=== PATIENT | female | born 1965 | race Caucasian/White ===

== ENCOUNTER 2018-07-01 08:35 | Observation (INO) | payer SELFPAY ==
--- NOTE | 2018-07-01 09:04 | ED ---
HPI Chest Pain - HPI Summary HPI Summary: This patient is a 52 year old F presenting to [facility] accompanied by her with a chief complaint of constant CP that began this morning. The patient rates the pain 1/10 in severity and states it is located mid sternal. Patient reports nausea, light headedness, SOB, fatigue, bilateral LE edema, and recent weight gain of 10lbs in the last 2 months. Patient denies blurred vison, vomiting, and recent head injury. She states she got up this am and checked her BP and noticed it was elevated. Pt recently broke her shoulder and saw Dr. Borjas, he noticed her BP was high and suggested she check it daily. She also had CP a week ago that radiated into her back but it resolved quickly. 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 Hx aortic stenosis, DM, and heart murmur. Pt smokes cigarettes daily. She is not on blood pressure medications, when she tried them in the past she had hematuria and LOC. FMHx of HTN. - History of Current Complaint Chief Complaint: EDChestPainROMI Time Seen by Provider: 07/01/18 08:53 Hx Obtained From: Patient Onset/Duration: Started Hours Ago, Still Present Timing: Constant Initial Severity: Mild Current Severity: Mild Pain Intensity: 1 Pain Scale Used: 0-10 Numeric Chest Pain Location: Mid Sternal Chest Pain Radiates: No Associated Signs and Symptoms: Positive: Other: - nausea, light headedness, SOB , fatigue, bilateral LE edema, and recent weight gain of 10lbs in the last 2 months. Negative: Negative - blurred vison, vomiting, - Allergy/Home Medications Allergies/Adverse Reactions: Allergies Allergy/AdvReac Type Severity Reaction Status Date / Time No Known Allergies Allergy Verified 07/01/18 08:41 Home Medications: Home Medications metFORMIN* [Glucophage 1000 MG TAB *] 1,000 mg PO BID 07/01/18 [History Confirmed 07/01/18] PMH/Surg Hx/FS Hx/Imm Hx Endocrine/Hematology History: Reports: Hx Diabetes Cardiovascular History: Reports: Hx Hypertension GI History: Denies: Hx Obstructive Bowel History: Denies: Hx Benign Prostatic Hyperplasia Sensory History: Denies: Hx Deafness Opthamlomology History: Denies: Hx Legally Blind EENT History: Denies: Hx Deafness Neurological History: Denies: Hx CVA Infectious Disease History: No Infectious Disease History: Denies: Traveled Outside the [place] in Last 30 Days - Family History Known Family History: Positive: Hypertension - Social History Occupation: Employed Full-time Lives: With Family Alcohol Use: None Substance Use Type: Reports: None Smoking Status (MU): Light Every Day Tobacco Smoker Review of Systems Positive: Fatigue. Negative: Fever, Chills Negative: Erythema Negative: Sore Throat Positive: Chest Pain, Other - high BP Positive: Shortness Of Breath. Negative: Cough Positive: Nausea. Negative: Abdominal Pain, Vomiting Negative: dysuria, hematuria Positive: Edema, Other - recent weight gain . Negative: Myalgia Negative: Rash Neurological: Negative - dizziness , Other - light headedness All Other Systems Reviewed And Are Negative: Yes Physical Exam - Summary Physical Exam Summary: Constitutional: Well-developed, Well-nourished, Alert. (-) Distressed Skin: Warm, Dry HENT: Normocephalic; Atraumatic Eyes: Conjunctiva normal Neck: Musculoskeletal ROM normal neck. (-) JVD, (-) Stridor, (-) Tracheal deviation Cardio: Rhythm regular, rate normal, Heart sounds normal; Intact distal pulses; The pedal pulses are 2+ and symmetric. Radial pulses are 2+ and symmetric. (-) Murmur Pulmonary/Chest wall: Effort normal. (-) Respiratory distress, (-) Wheezes, (-) Rales Abd: Soft, (-) epigastric tenderness, (-) Distension, (-) Guarding, (-) Rebound Musculoskeletal: (-) Edema Lymph: (-) Cervical adenopathy Neuro: Alert, Oriented x3 Psych: Mood and affect Normal Triage Information Reviewed: Yes Vital Signs On Initial Exam: Initial Vitals Temp Pulse Resp BP Pulse Ox 97.9 F 57 16 211/104 100 07/01/18 08:37 07/01/18 08:37 07/01/18 08:37 07/01/18 08:37 07/01/18 08:37 Vital Signs Reviewed: Yes Diagnostics - Vital Signs Vital Signs Temp Pulse Resp BP Pulse Ox 07/01/18 08:58 98 07/01/18 08:37 97.9 F 57 16 211/104 100 - Laboratory Result Diagrams: 07/01/18 09:14 07/01/18 09:14 Lab Statement: Any lab studies that have been ordered have been reviewed, and results considered in the medical decision making process. - Radiology CXR Radiology Interpretation Completed By: Radiologist - NO ACTIVE CARDIOPULMONARY DISEASE. ED physician has reviewed this radiology report. - EKG 0848 Cardiac Rate: Bradycardia EKG Rhythm: Sinus Bradycardia - at 55 BPM EKG Interpretation: no STEMI Re-Evaluation - Re-Evaluation First Eval Re-Evaluation Time: 10:05 Change: Improved Comment: Pt reports that her CP has resolved with the nitro. Chest Pain Course/Dx - Course Assessment/Plan: This patient is a 52 year old F presenting to [facility] accompanied by her with a chief complaint of constant CP that began this morning. The patient rates the pain 1/10 in severity and states it is located mid sternal. Patient reports nausea, light headedness, SOB, fatigue, bilateral LE edema, and recent weight gain of 10lbs in the last 2 months. Patient denies blurred vison, vomiting, and recent head injury. She states she got up this am and checked her BP and noticed it was elevated. Pt recently broke her shoulder and saw Dr. Borjas, he noticed her BP was high and suggested she check it daily. She also had CP a week ago that radiated into her back but it resolved quickly. 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 Hx aortic stenosis, DM, and heart murmur. Pt smokes cigarettes daily. She is not on blood pressure medications, when she tried them in the past she had hematuria and LOC. FMHx of HTN. An EKG reveals sinus bradycardia, no STEMI. CXR reveals, per radiologist, NO ACTIVE CARDIOPULMONARY DISEASE. Dx CP unspecified, hypertensive emergency. The patients chest pain is likely secondary to uncontrolled HTN. Blood work obtained. Her troponin and EKG were both negative. In the ED course the patient was given 324 ASA and nitro, which resolved the chest pain. We discussed patient care with Dr. Pitts and they accepted the patient for admission/observation. Patient will be admitted. The patient is agreeable with this plan. - Diagnoses Provider Diagnoses: Chest pain, unspecified, Hypertensive emergency - Provider Notifications Discussed Care Of Patient With: Navin Pitts Time Discussed With Above Provider: 10:00 Instructed by Provider To: Admit As Observation - Critical Care Time Critical Care Time: 30-74 min - 35 minutes Discharge - Sign-Out/Discharge Documenting (check all that apply): Patient Departure - admitted - Discharge Plan Condition: Fair Disposition: ADMITTED TO [facility] Referrals: Addi Barrios MD [Primary Care Provider] - - Attestation Statements Document Initiated by Scribe: Yes Documenting Scribe: Marty Camargo Provider For Whom Scribe is Documenting (Include Credential): Alejo Esquivel MD Scribe Attestation: IMarty , scribed for Alejo Esquivel MD on 07/01/18 at 1039.
[2018-07-01] MEDS ORDERED: Nitroglycerin TAB 0.4 MG* 0.4 MG TAB SL ONE (09:09)
[2018-07-01] MEDS ORDERED: nitroGLYCERIN DRIP* 25,000 MCG/250 ML BTL IV ONE (09:09)
[2018-07-01] MEDS ORDERED: Aspirin 81 mg CHEW TAB* 81 MG TAB.CHEW PO ONE (09:12)
[2018-07-01 09:22] LABS: ABS Basophils 0.1 10^3/ul (0-0.2); ABS Eosinophils 0.2 10^3/ul (0-0.6); ABS Lymphocytes 1.6 10^3/ul (1.0-4.8); ABS Monocytes 0.6 10^3/ul (0-0.8); ABS Nucleated RBC 0 10^3/ul; Eosinophil % 2.2 % (0-6); Hematocrit 42 % (35-47); Hemoglobin 14.3 g/dl (12.0-16.0); Lymphocyte % 18.9 % (25-47); Mean Corpuscular HGB Conc 34 g/dl (31-36); Mean Corpuscular Hemoglobin 30 pg (27-31); Mean Corpuscular Volume 88 fL (80-97); Mean Platelet Volume 7.7 um3 (7.4-10.4); Nucleated Red Blood Cells % 0.2; Platelet Count 215 10^3/ul (150-450); Red Blood Count 4.73 10^6/ul (4.00-5.40); Red Cell Distribution Width 13 % (10.5-15); White Blood Count 8.5 10^3/ul (3.5-10.8)
[2018-07-01 09:40] LABS: EGFR Non-African American 129.6 (>60)
--- NOTE | 2018-07-01 10:04 | RAD ---
HISTORY: cp COMPARISONS: October 04, 2005 VIEWS: 1: frontal portable view of the chest at 9:40 AM FINDINGS: LINES AND TUBES: None. CARDIOMEDIASTINAL SILHOUETTE: The cardiomediastinal silhouette is normal for portable technique. PLEURA: The costophrenic angles are sharp. No pleural abnormalities are noted. LUNG PARENCHYMA: The lungs are clear. ABDOMEN: The upper abdomen is clear. There is no subphrenic gas. BONES AND SOFT TISSUES: No bone or soft tissue abnormalities are noted. IMPRESSION: NO ACTIVE CARDIOPULMONARY DISEASE.
[2018-07-01] MEDS ORDERED: Lisinopril TAB* 10 MG PO ONE (13:20)
[2018-07-01] MEDS ORDERED: amLODIPine TAB* 5 MG PO ONE (13:20)
[2018-07-01] MEDS ORDERED: Dextrose 50% Syringe 50 ML* 25 GM/50 ML SYRINGE IV PUSH PRN (15:56)
[2018-07-01] MEDS: Insulin LISPRO* 1 UNITS UNIT SUBCUT SCH ×2 (17:53→20:14)
[2018-07-01] MEDS: hydrALAZINE IV* 20 MG/ML VIAL IV SLOW PU PRN (18:49)
[2018-07-01] MEDS ORDERED: Acetaminophen TAB* 325 MG ONE (18:54)
[2018-07-01] MEDS: Acetaminophen TAB* 325 MG PO PRN (18:55)
[2018-07-01] MEDS ORDERED: cloNIDine TAB* 0.1 MG PO ONE (19:42)
[2018-07-01] MEDS ORDERED: cloNIDine TAB* 0.1 MG ONE (19:51)
--- NOTE | 2018-07-01 20:03 | HP ---
CC: Dr. Barrios * ADMISSION HISTORY AND PHYSICAL: DATE OF ADMISSION: 07/01/18 PATIENT OF ADMITTING HOSPITALIST: Dr. Navin Pitts.* (DICTATED BY MORGAN HERRON) PRIMARY CARE PHYSICIAN: Dr. Barrios. CHIEF COMPLAINT: Chest pain. HISTORY OF PRESENT ILLNESS: Mrs. Coley is a 52-year-old female with past medical history significant for untreated hypertension and type 2 diabetes mellitus, who presented to the emergency room today with complaints of persistent chest pain and hypertension since yesterday. The patient apparently was treated for her hypertension about a year ago and took some medications that she could not tell me that names of them, however after a few weeks she decided to discontinue taking them because she had some reactions. When asking her about this reaction, she said that her blood pressure medicine made her dizzy and got lightheaded and presyncopal at times; however, she did not follow up with her primary care physician to seek an alternative medication. She checks her blood pressure at home and she notes that it has been constantly high , but appears to be a lot higher since yesterday. She had experienced some chest tightness, described it as dull aching pain, constant and 1 to 2/10 with some radiation to her back. She called her primary care physician and the patient was advised to come to the emergency room since her last reading of blood pressure at home was over 200 for systolic and over 120 for diastolic. The patient denied any substernal chest pain, shortness of breath, headache, dizziness, blurred vision, or visual changes. She does have remote history of aortic stenosis, for which she has never followed up with any etcher photoengraving. She was evaluated in the emergency room and her EKG found to be in sinus rhythm. She had also laboratory workup that revealed no significant abnormality. She was started on nitroglycerin drip in the emergency room with some improvement of her blood pressure. She also denied any chest pain upon admission once her blood pressure became closer to normal level. Given her ongoing symptoms and the fact that she has been hypertensive for a prolonged period of time and the need to control her hypertensive emergency, we were asked to see the patient to consider admission for observation. PAST MEDICAL HISTORY: As mentioned above, significant for: 1. Untreated hypertension. 2. Type 2 diabetes mellitus. 3. Morbid obesity. 4. Chronic neck pain. PAST SURGICAL HISTORY: Significant for C-sections x4 as well as throat surgery in the past. CURRENT MEDICATIONS: Include metformin 1000 mg p.o. b.i.d. ALLERGIES: She is allergic to BEE VENOM. FAMILY HISTORY: Reviewed and noncontributory. SOCIAL HISTORY: The patient is a current smoker, smokes about 1 pack per day. She denies drinking alcohol. 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 Her is a healthcare proxy carrier and she wishes to be a full code. REVIEW OF SYSTEMS: See HPI. Otherwise, 12 points review of systems were examined and they were essentially negative. PHYSICAL EXAMINATION GENERAL: She is a pleasant, obese, middle-aged female, in no acute distress or discomfort at the time of admission. VITAL SIGNS: Her vitals were stable and the patient was afebrile. Most recent blood pressure reading was 150/90. HEENT: Head is normocephalic, atraumatic. Sclerae anicteric. PERRLA. EOMs intact. Oropharynx is pink and moist. NECK: Supple. Trachea midline. No cervical adenopathy, thyromegaly, or JVD. LUNGS: Clear to auscultation bilaterally. HEART: Normal sinus rhythm noted. There is a harsh systolic murmur noted at the sternal margin. No gallops or rubs. ABDOMEN: Soft, nontender, and nondistended. No hernias, masses, or hepatosplenomegaly. BREASTS: Exam deferred at this time. BACK: With normal curvature and no CVA tenderness. EXTREMITIES: Without cyanosis, clubbing, or edema. NEUROLOGIC: She is awake, alert, and oriented x4. Tongue is midline and handgrip is equal bilaterally. Sensation is intact throughout. RECTAL: Exam deferred at this time. LABORATORY WORKUP: Her labs were reviewed and results are not available at this time since the [employer] system is down. Please review labs in her chart. ACCESSORY DIAGNOSTIC DATA: Her EKG was done today revealed sinus bradycardia with no evidence of ST changes. IMPRESSION: A 52-year-old female with past medical history significant for untreated hypertension, type 2 diabetes mellitus, and morbid obesity, who presented to the emergency room today with 24-hour history of elevated blood pressure and chest tightness, found to be in hypertensive emergency and will be admitted under hospital services for the following. ASSESSMENT AND PLAN: 1. Hypertensive emergency. The patient will be admitted for close observation to the intensive care unit. She was started on nitroglycerin drip per protocol in the emergency room and we will continue her nitroglycerin drip in the ICU and to titrate her off to maintain systolic blood pressure of 150. I have discussed the case with my attending, Dr. Pitts, who is recommending being cautious about dropping her blood pressure too fast in fear of having stroke. We will maintain her systolic blood pressure at 70% of the initial higher systolic at presentation and to titrate her nitroglycerin to half and 1 hour prior to discontinuing her nitrate drip, we will initiate calcium channel latricia as well as lisinopril at higher dose to maintain her blood pressure. The patient is clinically stable at this point and hopefully, we can convert her to oral antihypertensive agent by tomorrow, so she can be discharged to home. 2. Diabetes mellitus. We will hold off her metformin and will be covered with glucose checks and sliding scale using lispro. 3. Morbid obesity. Supportive care. 4. DVT prophylaxis: She is a moderate risk based on calculation and we will cover with SCDs for the time being. 5. Code status: She wishes to be a full code. TIME SPENT: Approximately 60 minutes were spent admitting this patient, of which greater than 50% of that time on taking history and performing physical exam. I went on and discussed the case with my attending, who agreed to plan of care. MORGAN HERRON [id number]/[facility] #: [id number] ELLA
[2018-07-02 05:39] LABS: ABS Basophils 0.1 10^3/ul (0-0.2); ABS Eosinophils 0.2 10^3/ul (0-0.6); ABS Lymphocytes 1.7 10^3/ul (1.0-4.8); ABS Monocytes 0.6 10^3/ul (0-0.8); ABS Neutrophils 5.3 10^3/ul (1.5-7.7); ABS Nucleated RBC 0 10^3/ul; Eosinophil % 2.1 % (0-6); Hematocrit 39 % (35-47); Hemoglobin 13.3 g/dl (12.0-16.0); Lymphocyte % 21.7 % (25-47); Mean Corpuscular HGB Conc 35 g/dl (31-36); Mean Corpuscular Hemoglobin 30 pg (27-31); Mean Corpuscular Volume 87 fL (80-97); Mean Platelet Volume 7.6 um3 (7.4-10.4); Nucleated Red Blood Cells % 0; Platelet Count 192 10^3/ul (150-450); Red Blood Count 4.42 10^6/ul (4.00-5.40); Red Cell Distribution Width 13 % (10.5-15); White Blood Count 7.9 10^3/ul (3.5-10.8)
[2018-07-02 05:59] LABS: EGFR Non-African American 132.6 (>60)
[2018-07-02] MEDS: hydrALAZINE IV* 20 MG/ML VIAL IV SLOW PU PRN ×2 (07:11→14:40)
[2018-07-02] MEDS: Acetaminophen TAB* 325 MG PO PRN (09:07)
[2018-07-02] MEDS ORDERED: Lisinopril TAB* 10 MG PO ONE (11:05)
[2018-07-02] MEDS: Insulin LISPRO* 1 UNITS UNIT SUBCUT SCH ×3 (11:15→17:47)
[2018-07-02] MEDS ORDERED: LORazepam INJ* 2 MG/ML 1 ML VIAL IV PUSH ONE (12:22)
[2018-07-02] MEDS ORDERED: LORazepam INJ* 2 MG/ML 1 ML VIAL ONE (12:25)
[2018-07-02] MEDS: hydrALAZINE IV* 20 MG/ML VIAL IV SLOW PU STA ×2 (12:28→13:56)
[2018-07-02] MEDS ORDERED: Regadenoson* 0.4 MG/5 ML SYRINGE ONE (14:33)
[2018-07-02] MEDS ORDERED: Metoprolol Tartrate IV* 1 MG/ML 5 ML VIAL IV ONE (15:43)
--- NOTE | 2018-07-02 15:47 | RAD ---
Indication: Chest pain. Myocardial perfusion scan was performed utilizing 1 day protocol. Rest myocardial perfusion was performed after intravenous injection of 10.4 mCi. Pharmacological stress was applied and 26.2 mCi of technetium 90 9M tetrofosmin was injected for the stress portion of the study. The left ventricle appears to be mildly enlarged. There is a moderate sized photopenic defect in the anterior wall on the stress images as well as the inferior wall. Both areas appear to reperfuse on the rest images and this is consistent with moderate size reversible change involving the anterior wall and inferior wall. Ejection fraction at stress is 59%. Evaluation of wall motion demonstrates no definite focal wall motion abnormality. IMPRESSION: Moderate-sized reversible change in the anterior wall and inferior wall. Ejection fraction of 59% with no focal wall motion abnormality. ASSESSMENT: High risk Based on imaging criteria from ACC/AHA 2002 Guideline Update for the Management of Patients With Chronic Stable Angina Table 23. Noninvasive Risk Stratification. Reference. HIGH-RISK (GREATER THAN 3% ANNUAL MORTALITY RATE) - Severe resting left ventricular dysfunction (LVEF < 35%) - Severe exercise left ventricular dysfunction (exercise LVEF < 35%) - Stress-induced large perfusion defect (particularly if anterior) - Stress-induced multiple perfusion defects of moderate size - Large, fixed perfusion defect with LV dilation or increased lung uptake (thallium-201) - Stress-induced moderate perfusion defect with LV dilation or increased lung uptake (thallium-201) INTERMEDIATE-RISK (1%-3% ANNUAL MORTALITY RATE) - Mild/moderate resting left ventricular dysfunction (LVEF = 35% to 49%) - Stress-induced moderate perfusion defect without LV dilation or increased lung intake (thallium-201) LOW-RISK (LESS THAN 1% ANNUAL MORTALITY RATE) - Normal or small myocardial perfusion defect at rest or with stress
[2018-07-02] MEDS ORDERED: Metoprolol Tartrate TAB* 25 MG PO ONE (16:40)
[2018-07-02] MEDS ORDERED: amLODIPine TAB* 5 MG PO SCH (17:00)
[2018-07-02] MEDS ORDERED: Aspirin TAB* 325 MG PO ONE (17:04)
[2018-07-02 17:47] VITALS: BP 161/73
--- NOTE | 2018-07-02 23:40 | CONS ---
CC: Dr. Barrios; Dr. Yahir Rodriguez CARDIOLOGY CONSULTATION: DATE OF CONSULT: CONSULTING PHYSICIAN: Dr. Moon. REASON FOR CONSULT: Abnormal stress test, chest pain. HISTORY OF PRESENT ILLNESS: Mrs. Vianca Connors is a very pleasant 52-year-old woman who has multiple risk factors of coronary artery disease including obesity , tobacco use, hypertension, diabetes, aortic stenosis. She said she has been told of high blood pressures in the past. She said 6 weeks ago, she fell and broke her shoulder. She saw Dr. Borjas in followup earlier this week and he told her that her blood pressures were elevated in the 200/108 range. She was told to take her blood pressure twice a day for the rest of the week. She said that blood pressures have been running in the 200 to 220/108 range and she also has felt more fatigued and more short of breath. 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 She said yesterday, for the first time, she developed chest pain while going to work. She said that it started about 5:30 in the morning and continued to work and she decided to come to the emergency room. She was admitted and had 2 negative troponins and she was given nitroglycerin and had resolution of her pain and her blood pressure is 200 /120 at home. She has a cough, which she has had for a week. She said she has been more short of breath. She said sometimes she wakes up in the middle of the night short of breath and she has to sit up for a few moments. She denies any syncope or near syncope except in the past when she was on medicine, which she thinks may have been metoprolol. She denies fever, chills, or sweats. She has had a nonproductive cough. PAST MEDICAL HISTORY: Includes hypertension, diabetes, elevated cholesterol based on screening here, tobacco use since 1982. She denies asthma, emphysema. She has type 2 diabetes, morbid obesity, chronic neck pain. History of a murmur since childhood; told of mild aortic stenosuis at echo last year (report not available). PAST SURGICAL HISTORY: Includes C-sections and throat surgery in the past. MEDICATIONS: As an outpatient include metformin 1000 mg b.i.d. As an inpatient , she is on: 1. Acetaminophen. 2. Amlodipine 10 mg a day started day. 3. Hydralazine p.r.n. 4. She has got clonidine. 5. Lorazepam. 6. Metoprolol 25 mg once earlier today. 7. She was on also lisinopril 40 mg a day. ALLERGIES: She is allergic to BEE VENOM. She also said that a few years ago, she was put on medicine, which she thinks may have been on METOPROLOL and she felt lightheaded and her symptoms resolved immediately with stopping it. FAMILY HISTORY: Includes, a mother who has hypertension and father who has hypertension. They are 74 and 76. One brother is alive and well. 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 She is accompanied by whose name is Mr. Connors. REVIEW OF SYSTEMS: Review of systems x10 was negative, except as above. PHYSICAL EXAM: She is a well-developed, well-nourished, obese female, in no apparent distress. Heart rate is 64. Blood pressure was 178/88. No significant JVD. Carotids 2+ with transmitted murmurs or bruits bilaterally. Extraocular muscles intact. Sclerae anicteric. Cardiac Exam: S1, S2 with 3/6 systolic ejection murmur, harsh at the base radiating across the pericardium, seemed to have single S2. Chest was clear. No CVAT. Abdomen: Obese, bowel sounds present. Femoral pulses intact with bruits bilaterally. Distal pulses are intact. No edema. Motor strength 5/5 bilaterally. Deep tendon reflexes 2/ 4. Alert and oriented x3. DIAGNOSTIC STUDIES/LAB DATA: Laboratories include potassium of 3.7, BUN of 9, creatinine of 0.49, magnesium low at 1.7. Troponin 0.01 x2. Cholesterol 225, LDL 133, HDL low at 36, triglycerides are 277. She had a nuclear stress test performed today, which revealed EF of 59%, stress. There was a moderate defect to the anterior wall on stresses as well as on the inferior wall, both appeared to be perfused consistent with moderate sized reversible change including the anterior wall and inferior wall. She was felt to be at high risk. Her EKG, 07/01/18, revealed sinus rhythm with possible anterior septal infarct and minor ST depressions in I and aVL and V4 and V6 and one more ST elevations in III and aVF. The ST changes were new compared to 2004 and her EKG from today revealed sinus brachycardia at [address] depressions in I and aVL and V5 and V6, poor R-wave progression and minimal ST elevation in III and aVF. EKG from yesterday at 1940 again showed similar findings. IMPRESSION: My impression is that Ms. Coley has new onset of chest pain in the setting of risk factors and poorly controlled blood pressure, diabetes, hyperlipidemia, tobacco use, and she has a high risk abnormal stress nuclear. She is at high risk for progression of her ischemic heart disease and an infarct and myocardial infarction and . I discussed that frankly with her and her with Dr. Moon at the bedside. The patient understands that our recommendation is to keep her as an inpatient, optimize medical therapy, and arrange for cardiac catheterization early next week. However, she reports that she is adamant about leaving the hospital and returning as an outpatient for her further evaluation and treatment. The risks and benefits were reviewed at length and the patient continues to be adamant about leaving. For the time being, I have recommended the followin. I strongly advised her to stay and if she leaves that will be against medical advice. 2. I would suggest adding aspirin 81 mg a day to her regimen. 3. I would use moderate dose of amlodipine perhaps 5 mg a day as well as lisinopril at moderate doses to control blood pressure. 4. She did not tolerate nitroglycerin after several hours due to headache; however, I would discharge her with instructions to use nitroglycerin p.r.n. 5. She is to return if she has recurrent chest pain. 6. I have advised tobacco cessation. 7. Would discharge her on Lipitor 40 mg a day, try to stabilize her plaques. 8. Given her history of aortic stenosis, would recommend a repeat echo to evaluate for progression of her aortic stenosis and LV dysfunction. 9. She has multiple bruits versus transmitted murmurs. Would consider a renal artery study as well. 10. Her prognosis is guarded. 11. Consider further evaluation for vascular disease with carotid dopplers and susana's given multiple bruits. [id number]/[facility] #: [id number] [facility]
[2018-07-03] MEDS ORDERED: Aspirin EC TAB* 81 MG TAB.EC PO SCH (09:00)
--- NOTE | 2018-07-05 08:55 | PN ---
Hospitalist Progress Note Date of Service: 07/02/18 . HOSPITALIST DISCHARGE NOTE: See dc instructions and summary by me. Patient demanding to be discharged and come back next week for cardiac catheterization. dc instructions reviewed with the patient at the bedside. DC patient home today. Cardiology team to contact patient for catheterization plans next week.
--- NOTE | 2018-07-05 10:09 | DS ---
DISCHARGE SUMMARY: DATE OF ADMISSION: 07/01/18 DATE OF DISCHARGE: 07/02/18. PRIMARY CARE PROVIDER: Dr. Addi Barrios, Medicine. STATUS DURING HOSPITALIZATION: Observation. PRINCIPAL DISCHARGE DIAGNOSIS: Unstable angina/abnormal stress test/hypertensive urgency. SECONDARY DIAGNOSES: 1. Obesity. 2. Tobacco abuse. 3. Hypertension. 4. Uncontrolled diabetes. 5. History of murmur (aortic stenosis). 6. Hypercholesterolemia. 7. Chronic neck pain. DISCHARGE MEDICATION REGIMEN: 1. Aspirin 81 mg by mouth daily. 2. Lisinopril 40 mg by mouth daily. 3. Lipitor 40 mg by mouth daily. 4. Nitroglycerin 0.6 mg per tab one tab every 5 minutes p.r.n. chest pain up to 3 times. 5. Norvasc 5 mg by mouth daily. 6. Metformin 1000 mg by mouth twice daily. 7. Hydrochlorothiazide 25 mg by mouth daily. HISTORY OF PRESENT ILLNESS/HOSPITAL COURSE: Please see the H and P by Dr. Minesh Pitts as well as t he cardiology consultation by Dr. Yahir Rodriguez. 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 She was quite hypertensive with systolics over 200 and diastolics over 100. The patient was more fatigued. This started the morning prior to admission and continued to wo rk and then ultimately to the emergency room. She had negative troponins and her blood pressure was controlled with an IV nitroglycerin drip. She described an upper respiratory infection with dry coug h. She denied any fevers or other infectious symptomatology. She was admitted to the ICU and ruled out but proceeded with a stress test that was rated high risk by ACC/AHA criteria. The patient is as ymptomatic at this time, she is adamantly refusing to stay in the hospital any longer but will agree to come back for a cardiac catheterization next week. She was counseled by Dr. Rodriguez in person in m y presence and I directly implored her to stay in the hospital over the weekend but she insisted on l eaving. Medications were prescribed to her pharmacy. She promised compliance with these medications. The patient is going to be contacted by the cardiology service for a catheterization appointment ea rljesus next week. She is given careful instructions to come back to the emergency room if she has any w orrisome symptoms including but not limited to chest pain, shortness of breath, lightheaded or any ot her worrisome symptoms. The nuclear medicine Lexiscan done on 07/02/18 is available in the [employer] [facility] but concludes: Moderate sized reversible change in the anterior wall and inferior wall with ejection fraction noted at 59% with no focal wall abnormality and the assessment is high risk by ACC/AHA 2002 guideline updat e for the management of patients with chronic stable angina. TIME SPENT: Total time taken to discharge Ms. Vianca Connors was 55 minutes; greater than half the time w as spent at the bedside going over her history and physical examination and explaining the return to hospital instructions referenced above. CONDITION AT DISCHARGE: Stable but at risk with careful ED instructions given to patient. Tobacco cessation counseling was also given directly to the patient by me at the point of discharge. [id number]/[facility] #: [id number]
== END 2018-07-02 18:15 | disposition home or self-care (01) ==
LOC: ED 08:35 → ICU 16:07 → INTOOBSV 16:07
PROVIDERS: ADMIT Student in an Organized Health Care Education/Training Program; ATTEND Internal Medicine
DX: R07.9 Chest pain, unspecified (principal); I10 Essential (primary) hypertension; E11.9 Type 2 diabetes mellitus without complications; E66.01 Morbid (severe) obesity due to excess calories; M54.2 Cervicalgia; G89.29 Other chronic pain; F17.210 Nicotine dependence, cigarettes, uncomplicated; R94.31 Abnormal electrocardiogram [ECG] [EKG]; R00.1 Bradycardia, unspecified
CPT/HCPCS: 36415; 71045; 78452; 80048; 80053; 80061; 83036; 83605; 83735; 84484; 85025; 87641; 93005; 93017; 96374; 96375; 96376; 99285; A9270-GY; A9502; G0378; J0360; J2060; J2785; J3490

== ENCOUNTER 2018-07-03 22:53 | Observation (INO) | payer BC ==
[2018-07-03] MEDS ORDERED: Nitroglycerin 2% OINT* 1 GM PAK TOPICAL ONE (23:18)
[2018-07-03] MEDS ORDERED: Nitroglycerin 2% OINT* 1 GM PAK ONE (23:19)
--- NOTE | 2018-07-03 23:29 | ED ---
HPI Chest Pain - HPI Summary HPI Summary: This is scribe Phu Fortune documenting for attending Dr. Jerry Jean-Baptiste MD. This patient is a 52 year old F presenting to [facility] accompanied by a male with a chief complaint of intermittent, pressure-like, midsternal CP since several hours ago. The patient rates the pain 4/10 in severity. Patient reports general malaise, SOB, cough, HTN, fatigue, and increased sleeping. Pt took NTG at 21:00 , which she took at home. She felt better and then the pain came back, so she decided to come to the ED. Pt was in ICU two days ago for HTN and heart murmur. She says that she failed a stress test. She left AMA yesterday without getting the heart cath. Pt felt a lot better yesterday than she felt today. SHx pt says she quit smoking two days ago, since the first incident. PMHx heart murmur. I, Dr. Jean-Baptiste, personally performed the services described in this documentation as scribed in my presence and it is both accurate and complete. - History of Current Complaint Chief Complaint: EDChestPainROMI Time Seen by Provider: 07/03/18 23:12 Hx Obtained From: Patient Onset/Duration: Started Hours Ago Timing: Intermittent Initial Severity: Moderate Current Severity: Moderate Pain Intensity: 4 Pain Scale Used: 0-10 Numeric Chest Pain Location: Mid Sternal Associated Signs and Symptoms: Positive: Weakness, Shortness of Breath, Cough - Additional Pertinent History Primary Care Physician: [id number] - Allergy/Home Medications Allergies/Adverse Reactions: Allergies Allergy/AdvReac Type Severity Reaction Status Date / Time No Known Allergies Allergy Verified 07/01/18 08:41 PMH/Surg Hx/FS Hx/Imm Hx Endocrine/Hematology History: Reports: Hx Diabetes Cardiovascular History: Reports: Hx Angina, Hx Hypertension, Other Cardiovascular Problems/Disorders - AORTIC STENOSIS Denies: Hx Coronary Artery Disease, Hx Hypercholesterolemia, Hx Myocardial Infarction Comment Only: Hx Valvular Heart Disease - unsure Respiratory History: Denies: Hx Asthma, Hx Chronic Obstructive Pulmonary Disease (COPD) GI History: Denies: Hx Obstructive Bowel History: Denies: Hx Benign Prostatic Hyperplasia Sensory History: Denies: Hx Contacts or Glasses, Hx Legally Blind, Hx Deafness, Hx Hearing Aid Opthamlomology History: Denies: Hx Contacts or Glasses, Hx Legally Blind Neurological History: Denies: Hx CVA - Immunization History Date of Tetanus Vaccine: unk Date of Influenza Vaccine: unk Infectious Disease History: No Infectious Disease History: Denies: Traveled Outside the [place] in Last 30 Days - Family History Known Family History: Positive: Hypertension - Social History Alcohol Use: None Substance Use Type: Reports: None Smoking Status (MU): Heavy Every Day Tobacco Smoker Type: Cigarettes Amount Used/How Often: 1 pck/day Length of Time of Smoking/Using Tobacco: 1982 Have You Smoked in the Last Year: Yes Review of Systems Positive: Fatigue, Other - increased need for sleep Positive: Chest Pain, Other - murmur Positive: Shortness Of Breath, Cough Positive: Weakness All Other Systems Reviewed And Are Negative: Yes Physical Exam - Summary Physical Exam Summary: Appearance: Well-appearing, Well-nourished, lying in bed comfortably Skin: Warm, dry, no obvious rash Eyes: sclera anicteric, no conjunctival pallor ENT: mucous membranes moist, pharynx appears normal Neck: Supple, nontender Respiratory: Clear to auscultation, no signs of respiratory distress Cardiovascular: 3/6 pansystolic murmur Abdomen: Soft, nontender, normal active bowel sounds present Musculoskeletal: Normal, Strength/ROM Intact Neurological: A&Ox3, awake and alert, mentation is normal, speech is fluent and appropriate Psychiatric: affect is normal, does not appear anxious or depressed Triage Information Reviewed: Yes Vital Signs On Initial Exam: Initial Vitals Temp Pulse Resp BP Pulse Ox 99.0 F 73 15 187/70 94 07/03/18 23:08 07/03/18 23:08 07/03/18 23:08 07/03/18 23:08 07/03/18 23:08 Vital Signs Reviewed: Yes Diagnostics - Vital Signs Vital Signs Temp Pulse Resp BP Pulse Ox 07/03/18 23:08 99.0 F 73 15 187/70 94 - Laboratory Result Diagrams: 07/04/18 05:30 07/04/18 05:30 Lab Statement: Any lab studies that have been ordered have been reviewed, and results considered in the medical decision making process. - Radiology CXR Radiology Interpretation Completed By: ED Physician - possible new infiltrate in left upper lung field - EKG 22:59 Cardiac Rate: NL EKG Rhythm: Sinus Rhythm EKG Interpretation: No ischemic changes Re-Evaluation - Re-Evaluation First Eval Re-Evaluation Time: 23:58 Change: Improved - pain is almost resolved Chest Pain Course/Dx - Diagnoses Provider Diagnoses: Pneumonia, Unstable angina Discharge - Sign-Out/Discharge Documenting (check all that apply): Patient Departure - admit - Discharge Plan Condition: Guarded Disposition: ADMITTED TO [facility] - Billing Disposition and Condition Condition: GUARDED Disposition: Admitted to [facility] - Attestation Statements Document Initiated by Scribe: Yes Documenting Scribe: Phu Fortune Provider For Whom Kim is Documenting (Include Credential): Jerry Jean-Baptiste MD Scribe Attestation: Phu Peck, scribed for Jerry Jean-Baptiste MD on 07/04/18 at 0647. Scribe Documentation Reviewed: Yes Provider Attestation: The documentation as recorded by the scribePhu accurately reflects the service I personally performed and the decisions made by me, Jerry Jean-Baptiste MD
[2018-07-03 23:30] LABS: ABS Basophils 0.1 10^3/ul (0-0.2); ABS Eosinophils 0.1 10^3/ul (0-0.6); ABS Lymphocytes 0.9 10^3/ul (1.0-4.8); ABS Monocytes 1.1 10^3/ul (0-0.8); ABS Neutrophils 7.1 10^3/ul (1.5-7.7); ABS Nucleated RBC 0 10^3/ul; Eosinophil % 0.7 % (0-6); Hematocrit 41 % (35-47); Hemoglobin 14.3 g/dl (12.0-16.0); Lymphocyte % 9.6 % (25-47); Mean Corpuscular HGB Conc 35 g/dl (31-36); Mean Corpuscular Hemoglobin 31 pg (27-31); Mean Corpuscular Volume 88 fL (80-97); Mean Platelet Volume 7.6 um3 (7.4-10.4); Nucleated Red Blood Cells % 0.1; Platelet Count 190 10^3/ul (150-450); Red Blood Count 4.66 10^6/ul (4.00-5.40); Red Cell Distribution Width 13 % (10.5-15); White Blood Count 9.2 10^3/ul (3.5-10.8)
[2018-07-03 23:46] LABS: EGFR Non-African American 101.1 (>60)
[2018-07-04] MEDS ORDERED: cefTRIAXone(*) 1 GM in NS 0.9% 50 ML* 50 ML IVPB ONE (00:05)
[2018-07-04] MEDS ORDERED: Azithromycin IV(*) 500 MG in NS 0.9% 250 ML* 250 ML IVPB ONE (00:05)
[2018-07-04] MEDS ORDERED: Ondansetron ODT TAB* 4 MG PO PRN (00:44)
[2018-07-04] MEDS ORDERED: Melatonin 3 MG TAB PO PRN (00:44)
[2018-07-04] MEDS ORDERED: Aspirin 81 mg CHEW TAB* 81 MG TAB.CHEW PO ONE (00:44)
[2018-07-04] MEDS ORDERED: Nicotine Inhaler* 10 MG AMP INH PRN (00:44)
[2018-07-04] MEDS ORDERED: NS 0.9% 1000 ML* 1,000 ML IV SCH (00:45)
[2018-07-04] MEDS ORDERED: Mouth Piece, Nicotine* 1 EACH CARTRIDGE INH ONE (00:55)
--- NOTE | 2018-07-04 00:57 | HP ---
H&P (Free Text) History and Physical: PCP: Bryan Barrios MD Date/Time: 07/04/2018 0010 CC: chest pain HPI: Mrs Vianca Connors is a 52YO obese female smoker HX HTN & DM2 who was admitted observation to [facility] 07/01-07/02/2018 for chest pain and found on a high risk nuclear stress to have a moderate-sized reversible change in the anterior and inferior frazier. EF 59% with no focal wall motion abnormality. She was offered a cardiac cath for further evaluation and management; however, she refused and signed out AMA. Tonight she returns reporting onset around 1400 of non- exertional non-radiating substernal chest pressure associated with SOB, nausea without vomiting, sweating, and palpitations which improved after SL nitro and resolved with the addition of nitropaste in the ED. After several hours of continuing discomfort, she had her drive her back to [facility] ED where a new RUL infiltrate was identified along with a benign ECG and normal troponin. PMedHx, PSurgHx, SocHx, & FamHx: reviewed & unchanged from prior H&P dated 07/01, copied below Ambulatory Orders Nursing to reconcile. metFORMIN* [Glucophage 1000 MG TAB *] 1,000 mg PO BID 07/01/18 Aspirin [Adult Low Dose Aspirin EC] 81 mg PO DAILY #30 tablet. 07/02/18 Hydrochlorothiazide TAB* [Hydrodiuril TAB*] 25 mg PO DAILY #30 tab 07/02/18 Lisinopril [Zestril 40 MG-] 40 mg PO DAILY #30 tab 07/02/18 Nitroglycerin TAB 0.6 MG* 0.6 mg SL Q5M PRN #30 tab 07/02/18 amLODIPine TAB* [Norvasc 5 mg TAB*] 5 mg PO DAILY #30 tab 07/02/18 Allergies No Known Allergies Allergy (Verified 07/01/18 08:41) ROS: as above, otherwise reviewed and all were negative vitals: Vital Signs Temp 37.2 C 07/03/18 23:08 Pulse 71 07/03/18 23:42 Resp 15 07/03/18 23:42 BP 157/71 07/03/18 23:40 Pulse Ox 98 07/03/18 23:42 Intake & Output 07/03/18 07/03/18 07/04/18 11:59 23:59 11:59 Weight 86.183 kg Constitutional: NAD, normally developed, obese white female smelling prominently of cigarette smoke HEENM: atraumatic; sclera/conjunctiva: anicteric/clear; hearing: clinically intact; oropharynx: clear, mucosa moist Neck: soft tissue: non-tender; thyroid: normal Pulmonary: clear but mildly diminished RUL, fair aeration, no accessory muscle use CV: RR/RR, normal S1S2, no carotid bruit, no jugular venous distention, 2+ B DP/ PT, no edema Abdominal: soft, non-distended, non-tender, no rebound/guarding/rigidity, normoactive bowel sounds, no hepatosplenomegaly or masses, no costovertebral angle tenderness Musculoskeletal: general: grossly intact, non-tender Integumental: normal appearance and texture of exposed skin Psychiatric orientation: AA&O to PPS affect: calm mood: cooperative eye contact: poor content: reliable responses: timely insight: fair to poor Testing: Lab Results 07/03/18 07/03/18 Range/Units 23:18 23:18 WBC 9.2 (3.5-10.8) 10^3/ul RBC 4.66 (4.00-5.40) 10^6/ul Hgb 14.3 (12.0-16.0) g/dl Hct 41 (35-47) % MCV 88 (80-97) fL MCH 31 (27-31) pg MCHC 35 (31-36) g/dl RDW 13 (10.5-15) % Plt Count 190 (150-450) 10^3/ul MPV 7.6 (7.4-10.4) um3 Neut % (Auto) 77.1 (38-83) % Lymph % (Auto) 9.6 L (25-47) % Edmonson % (Auto) 11.5 H (0-7) % Eos % (Auto) 0.7 (0-6) % Baso % (Auto) 1.1 (0-2) % Absolute Neuts (auto) 7.1 (1.5-7.7) 10^3/ul Absolute Lymphs (auto) 0.9 L (1.0-4.8) 10^3/ul Absolute Monos (auto) 1.1 H (0-0.8) 10^3/ul Absolute Eos (auto) 0.1 (0-0.6) 10^3/ul Absolute Basos (auto) 0.1 (0-0.2) 10^3/ul Absolute Nucleated RBC 0 10^3/ul Nucleated RBC % 0.1 Sodium 133 L (135-145) mmol/L Potassium Pending Chloride 101 (101-111) mmol/L Carbon Dioxide 22 (22-32) mmol/L Anion Gap Pending BUN 12 (6-24) mg/dL Creatinine 0.62 (0.51-0.95) mg/dL Est GFR ( Amer) 122.3 (>60) Est GFR (Non-Af Amer) 101.1 (>60) BUN/Creatinine Ratio 19.4 (8-20) Glucose 219 H (70-100) mg/dL Calcium 9.3 (8.6-10.3) mg/dL Total Bilirubin 0.60 (0.2-1.0) mg/dL AST Pending ALT 21 (7-52) U/L Alkaline Phosphatase 68 (34-104) U/L Troponin I 0.01 (<0.04) ng/mL Total Protein 7.4 (6.4-8.9) g/dL Albumin 3.9 (3.2-5.2) g/dL Globulin 3.5 (2-4) g/dL Albumin/Globulin Ratio 1.1 (1-3) ECG, personally reviewed: NSR rate 68, no ischemia CXR, personally reviewed: interval development of a RUL infiltrate NST (07/02/2018): IMPRESSION: Moderate-sized reversible change in the anterior wall and inferior wall. Ejection fraction of 59% with no focal wall motion abnormality. ASSESSMENT: High risk Impression: 52F HX obesity, HTN, DM2 returns with chest pain after refusing cardiac cath and signing out AMA 07/02 with a high-risk NST DIAGNOSIS & PLAN Primary chest pain r/o ACS : give 324mg aspirin now & 81mg QAM : give 25mg PO metoprolol IR now : 1" nitropaste : supplemental oxygen : telemetry : trend troponin : check ECHO : supportive care RUL pneumonia, suspect S pneumonia : blood & sputum CXs : IV azithromycin & ceftriaxone : incentive spirometry : smoking cessation advised, moderate motivation Secondary HTN : continue HCTZ 25mg QAM & amlodipine 5mg QPM : decrease lisinopril to 20mg QAM : add metoprolol IR 25mg BID DM2 : A1c 8.0 06/2018 : consistent carb diet : ACHS glucometry w/ correctional insulin Admission Rational: observation for r/o ACS & initiation of ABX for pneumonia DVTp: heparin SQ Code Status: full HCP: History & Physical Patient: LASHAY DUNBAR /Age: 03 1965 52 Medical Record#: [id number] Admission Date: 07/01/18 Provider: Heather MORA CC: Dr. Barrios * ADMISSION HISTORY AND PHYSICAL: DATE OF ADMISSION: 07/01/18 PATIENT OF ADMITTING HOSPITALIST: Dr. Navin Pitts.* (DICTATED BY MORGAN HERRON) PRIMARY CARE PHYSICIAN: Dr. Barrios. CHIEF COMPLAINT: Chest pain. HISTORY OF PRESENT ILLNESS: Mrs. Coley is a 52-year-old female with past medical history significant for untreated hypertension and type 2 diabetes mellitus, who presented to the emergency room today with complaints of persistent chest pain and hypertension since yesterday. The patient apparently was treated for her hypertension about a year ago and took some medications that she could not tell me that names of them, however after a few weeks she decided to discontinue taking them because she had some reactions. When asking her about this reaction, she said that her blood pressure medicine made her dizzy and got lightheaded and presyncopal at times; however, she did not follow up with her primary care physician to seek an alternative medication. She checks her blood pressure at home and she notes that it has been constantly high , but appears to be a lot higher since yesterday. She had experienced some chest tightness, described it as dull aching pain, constant and 1 to 2/10 with some radiation to her back. She called her primary care physician and the patient was advised to come to the emergency room since her last reading of blood pressure at home was over 200 for systolic and over 120 for diastolic. The patient denied any substernal chest pain, shortness of breath, headache, dizziness, blurred vision, or visual changes. She does have remote history of aortic stenosis, for which she has never followed up with any sap developer. She was evaluated in the emergency room and her EKG found to be in sinus rhythm. She had also laboratory workup that revealed no significant abnormality. She was started on nitroglycerin drip in the emergency room with some improvement of her blood pressure. She also denied any chest pain upon admission once her blood pressure became closer to normal level. Given her ongoing symptoms and the fact that she has been hypertensive for a prolonged period of time and the need to control her hypertensive emergency, we were asked to see the patient to consider admission for observation. PAST MEDICAL HISTORY: As mentioned above, significant for: 1. Untreated hypertension. 2. Type 2 diabetes mellitus. 3. Morbid obesity. 4. Chronic neck pain. PAST SURGICAL HISTORY: Significant for C-sections x4 as well as throat surgery in the past. CURRENT MEDICATIONS: Include metformin 1000 mg p.o. b.i.d. ALLERGIES: She is allergic to BEE VENOM. FAMILY HISTORY: Reviewed and noncontributory. SOCIAL HISTORY: The patient is a current smoker, smokes about 1 pack per day. She denies drinking alcohol. 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 Her is a healthcare proxy carrier and she wishes to be a full code. REVIEW OF SYSTEMS: See HPI. Otherwise, 12 points review of systems were examined and they were essentially negative. PHYSICAL EXAMINATION GENERAL: She is a pleasant, obese, middle-aged female, in no acute distress or discomfort at the time of admission. VITAL SIGNS: Her vitals were stable and the patient was afebrile. Most recent blood pressure reading was 150/90. HEENT: Head is normocephalic, atraumatic. Sclerae anicteric. PERRLA. EOMs intact. Oropharynx is pink and moist. NECK: Supple. Trachea midline. No cervical adenopathy, thyromegaly, or JVD. LUNGS: Clear to auscultation bilaterally. HEART: Normal sinus rhythm noted. There is a harsh systolic murmur noted at the sternal margin. No gallops or rubs. ABDOMEN: Soft, nontender, and nondistended. No hernias, masses, or hepatosplenomegaly. BREASTS: Exam deferred at this time. BACK: With normal curvature and no CVA tenderness. EXTREMITIES: Without cyanosis, clubbing, or edema. NEUROLOGIC: She is awake, alert, and oriented x4. Tongue is midline and handgrip is equal bilaterally. Sensation is intact throughout. RECTAL: Exam deferred at this time. LABORATORY WORKUP: Her labs were reviewed and results are not available at this time since the [employer] system is down. Please review labs in her chart. ACCESSORY DIAGNOSTIC DATA: Her EKG was done today revealed sinus bradycardia with no evidence of ST changes. IMPRESSION: A 52-year-old female with past medical history significant for untreated hypertension, type 2 diabetes mellitus, and morbid obesity, who presented to the emergency room today with 24-hour history of elevated blood pressure and chest tightness, found to be in hypertensive emergency and will be admitted under hospital services for the following. ASSESSMENT AND PLAN: 1. Hypertensive emergency. The patient will be admitted for close observation to the intensive care unit. She was started on nitroglycerin drip per protocol in the emergency room and we will continue her nitroglycerin drip in the ICU and to titrate her off to maintain systolic blood pressure of 150. I have discussed the case with my attending, Dr. Pitts, who is recommending being cautious about dropping her blood pressure too fast in fear of having stroke. We will maintain her systolic blood pressure at 70% of the initial higher systolic at presentation and to titrate her nitroglycerin to half and 1 hour prior to discontinuing her nitrate drip, we will initiate calcium channel latricia as well as lisinopril at higher dose to maintain her blood pressure. The patient is clinically stable at this point and hopefully, we can convert her to oral anti- hypertensive agent by tomorrow, so she can be discharged to home. 2. Diabetes mellitus. We will hold off her metformin and will be covered with glucose checks and sliding scale using lispro. 3. Morbid obesity. Supportive care. 4. DVT prophylaxis: She is a moderate risk based on calculation and we will cover with SCDs for the time being. 5. Code status: She wishes to be a full code. TIME SPENT: Approximately 60 minutes were spent admitting this patient, of which greater than 50% of that time on taking history and performing physical exam. I went on and discussed the case with my attending, who agreed to plan of care. MORGAN HERRON [id number]/CPS #: [id number] <Electronically signed by Heather MORA> 07/02/18 0915 <Electronically signed by Navin Pitts MD> 07/03/18 1155 Heather MORA Dictated Date/Time: 07/01/18 1335 Transcribed Date/Time 07/01/18 1413 Copy to: CC: Heather MORA; Addi Barrios MD This report is only to be considered final once signed by the Provider(s) as displayed in the "<Electronically Signed by >" field (s). Absence of a signature indicates the report is in a draft status and still needs to be finalized. In the event this document was created by someone other than the signing Provider, the individual initiating the document will be listed in the "Entered by:" or "Dictated by:" bonner.
[2018-07-04] MEDS ORDERED: Nitroglycerin 2% OINT* 1 GM PAK TOPICAL SCH (01:00)
[2018-07-04] MEDS ORDERED: Aspirin 81 mg CHEW TAB* 81 MG TAB.CHEW ONE (01:07)
[2018-07-04] MEDS ORDERED: Metoprolol Tartrate TAB* 25 MG ONE (01:07)
[2018-07-04] MEDS: Metoprolol Tartrate TAB* 25 MG PO SCH ×3 (01:10→20:43)
[2018-07-04 02:05] LABS: INR 1.04 (0.77-1.02)
[2018-07-04] MEDS: Nitroglycerin 2% OINT* 1 GM PAK TOPICAL SCH (05:32)
[2018-07-04] MEDS: Omeprazole CAP* 20 MG PO SCH (05:32)
[2018-07-04 05:51] LABS: ABS Basophils 0 10^3/ul (0-0.2); ABS Eosinophils 0.1 10^3/ul (0-0.6); ABS Lymphocytes 1.2 10^3/ul (1.0-4.8); ABS Monocytes 0.8 10^3/ul (0-0.8); ABS Neutrophils 5.4 10^3/ul (1.5-7.7); ABS Nucleated RBC 0 10^3/ul; Eosinophil % 1.1 % (0-6); Hematocrit 38 % (35-47); Hemoglobin 13.2 g/dl (12.0-16.0); Lymphocyte % 15.8 % (25-47); Mean Corpuscular HGB Conc 35 g/dl (31-36); Mean Corpuscular Hemoglobin 30 pg (27-31); Mean Corpuscular Volume 87 fL (80-97); Mean Platelet Volume 7.6 um3 (7.4-10.4); Nucleated Red Blood Cells % 0.1; Platelet Count 177 10^3/ul (150-450); Red Blood Count 4.37 10^6/ul (4.00-5.40); Red Cell Distribution Width 13 % (10.5-15); White Blood Count 7.6 10^3/ul (3.5-10.8)
[2018-07-04 06:25] LABS: EGFR Non-African American 126.6 (>60)
[2018-07-04] MEDS: Docusate CAP* 100 MG PO SCH ×2 (08:44→20:42)
[2018-07-04] MEDS: Insulin LISPRO* 1 UNITS UNIT SUBCUT SCH ×4 (08:44→20:44)
[2018-07-04] MEDS: Aspirin EC TAB* 81 MG TAB.EC PO SCH (08:44)
[2018-07-04] MEDS: Hydrochlorothiazide TAB* 25 MG PO SCH (08:44)
[2018-07-04] MEDS ORDERED: amLODIPine TAB* 5 MG PO SCH (09:00)
[2018-07-04] MEDS ORDERED: Hydrochlorothiazide TAB* 25 MG PO SCH (09:00)
[2018-07-04] MEDS ORDERED: Lisinopril TAB* 10 MG PO SCH (09:00)
--- NOTE | 2018-07-04 09:15 | RAD ---
INDICATION: Chest pain and hypertension COMPARISON: Most recent comparison chest x-rays dated July 01, 2018 TECHNIQUE: Single AP portable view of the chest was obtained. FINDINGS: Image quality is compromised due to the relative inferiority of a portable chest x-ray. The heart and mediastinum exhibit normal size and contour. New since the previous chest x-ray is a density along the medial margin of the right upper lung that obscures the lateral margin of the mediastinum. In addition, the pulmonary vasculature appears to be mildly engorged. The costophrenic angles are properly defined in the AP projection. Visualized bones are normal for the patient's age. IMPRESSION: 1. New since the July 01, 2018 chest x-ray is a density along the medial margin of the right upper lung obscuring the lateral margin of the mediastinum. This could be a pneumonia in the correct clinical setting. 2. Alternatively, the pulmonary vasculature appears mildly engorged and there is fairly symmetric fullness of the bilateral gloria, and appearance that could be due to mild pulmonary vascular congestion. R0
[2018-07-04] MEDS: Nitro Patch/OINT Remove TOPICAL SCH (11:17)
[2018-07-04] MEDS ORDERED: Potassium Chloride LIQUID* 20 MEQ PACKET PO ONE (11:50)
[2018-07-04] MEDS: Atorvastatin* 40 MG TAB PO SCH (12:22)
--- NOTE | 2018-07-04 13:57 | CONS ---
CC: Dr. Moon; Dr. Barrios; Dr. Rodriguez; Lizyz Puente NP CARDIOLOGY CONSULTATION: DATE OF CONSULT: 07/04/18 CONSULTING PROVIDER: Lizzy Puente NP REASON FOR EVALUATION: Unstable angina. HISTORY OF PRESENT ILLNESS: This is a very pleasant 52-year-old woman, whom I saw for the first time on the evening of 07/01/18 at the request of Dr. Moon. Please see the consultation from that evaluation. At that time, she had had a high- risk nuclear stress test and progressive symptoms of dyspnea on exertion, fatigue, PND, and progressive angina suggestive of coronary artery disease. She also had diffuse mild ST depressions, which improved with better control of her angina and blood pressure. At that time, I recommended she stay for further evaluation for CAD with a cardiac catheterization; however, she declined to stay in the hospital and went home with antianginal medications with instructions to return if symptoms recurred. She also requested that I arrange a cath as an outpatient. She said on the evening of 07/03/18, Thursday night, she had been sleeping most of the day on and off. She says while resting , she developed chest pressure, which was relieved promptly within a minute or two of taking a nitroglycerin. About an hour later, the CP recurred and because of the symptoms, she came to the emergency room. She was given a nitro paste, and had resolution of her symptoms. She has had no further symptoms. She was complaining of a cough, which was nonproductive last week and again yesterday. She had a chest x-ray raising possibility for right upper lobe infiltrate. She was started on antibiotics. She denies any fevers. She says occasionally she has some chills. She does get shortness of breath easily and with her episodes of chest discomfort. She denies any fevers, sweats, hematemesis, or hematochezia. No orthopnea and no peripheral edema. She does report that at home her blood pressures were elevated Thursday night and Thursday in the 180s to approximately 200 range. PAST MEDICAL HISTORY: Includes \ diabetes hypertension, elevated cholesterol based on her recent admission, tobacco use since 1982 morbid obesity chronic neck pain murmur since childhood, dd told a mild aortic stenosis by echo last year, although the reports were at [facility] and are not available at present. PAST SURGICAL HISTORY: Includes C-sections and throat surgery in the past. MEDICATIONS: Include: 1. Amlodipine 5 mg a day. 2. Aspirin 81 mg a day. 3. She was started on azithromycin and ceftriaxone yesterday. 4. Colace 200 mg b.i.d. 5. Subcu heparin. 6. Hydrochlorothiazide 25 mg a day. 7. Lisinopril, she was on 20 mg. 8. Melatonin 3 mg at bedtime p.r.n. 9. Metoprolol 25 mg twice a day started here. 10. Nicotine inhaler 10 mg q.2 p.r.n. 11. Nitroglycerin ointment 1 inch to chest wall q.a.m. 12. Omeprazole 20 mg a day. 13. Zofran 4 mg q.6 p.r.n. 14. Sodium chloride 50 cc an hour. ALLERGIES: Include BEE VENOM. She says she thinks that when she was on metoprolol in the past, she had lightheadedness, her symptoms resolved immediately with stopping it. She has a tendency towards slow heart rate. FAMILY HISTORY: Includes, a mother who has hypertension and father who has hypertension; they are 74 and 76. She has a brother who is well. 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 She is and accompanied by her , who is at the bedside this morning. REVIEW OF SYSTEMS: Review of systems x10 was negative except as above. PHYSICAL EXAM: She is a well-developed, well-nourished, obese female. Weight 200 pounds. Temperature 98.1, it was 99.7 last night at 1:47 a.m.; pulse of 57 ; O2 sat 96% on room air; blood pressure 132/68. No significant JVD. Carotids 2+. Transmitted murmurs or bruits bilaterally. Cardiac Exam: S1, S2 with a 3/ 6 systolic ejection murmur at the base with a physiologic split S2. Chest was clear except for E:A changes over the right upper posterior lung field. Abdomen : Obese. Bowel sounds present. Femoral pulses intact with bruits bilaterally. Distal pulses intact. No edema. Motor strength 5/5 bilaterally. Deep tendon reflexes 2/4. Alert and oriented x3. DIAGNOSTIC STUDIES/LAB DATA: EKG from this morning at 7:21 reveals sinus bradycardia at [address] depressions and poor R-wave progression, consider ischemia. Her EKG from 2004 had poor R-wave progression, but no ST depressions. Her EKG from 07/01/[address] depressions without T-wave flattening but she has now, and EKG from 07/02/[address]ressions with upright T waves in the precordial leads and biphasic to flattened T waves in I and aVL. Her chest x-ray from 07/03/18 by report revealed a new density along the medial margin of the right upper lung obscuring the lateral margin of the mediastinum, could be pneumonia in the correct clinical setting, and the pulmonary vasculature appears mildly engorged, fairly symmetric gloria, could be due to mild pulmonary congestion. Laboratories include normal CBC. Sodium 135, potassium of 3.7, BUN of 10, creatinine of 0.51, glucose is elevated at 162, calcium low at 8.5. Troponins 0.01, 0.01, and 0. BNP normal at 28. IMPRESSION AND PLAN: My impression is that Ms. Coley has risk factors for coronary artery disease and symptoms concerning for progressive unstable angina. Although her troponins have been negative, she had nonspecific ST changes, which have been varying and she has pain responsive to nitrates. She also has a high-risk nuclear study. She also has a history of aortic stenosis. I discussed again with her and her my concerns about unstable angina in the setting of a high-risk nuclear scan and risk factors, I have recommended cardiac catheterization. She understands that the cardiac catheterization will be tentatively scheduled for early this week, but may be delayed depending on her status. I will try to maintain her potassium over 4. We will continue hydration. We would lower her lisinopril to 10 mg a day given her low normal blood pressures overnight and potential for aortic stenosis. She will have an echo to assess her LV function and aortic stenosis. She is to discontinue tobacco use. We would decrease the dose of metoprolol to 12.5 b.i.d. given her low-resting heart rate and history of dizziness on metoprolol in the past possibly due to bradycardia. We would add a statin to her regimen, atorvastatin 40 mg a day. [id number]/[facility] #: [id number] [facility]
--- NOTE | 2018-07-04 14:50 | PN ---
Subjective Date of Service: 07/04/18 Interval History: Ms. Vianca Connors reports a non-productive cough for approximately one month. She denies fever or malaise. She denies chest pain, SOB, nausea, or abdominal pain. Objective Active Medications: Acetaminophen (Tylenol Tab*) 650 mg PO Q6H PRN Amlodipine Besylate (Norvasc Tab*) 5 mg PO QPM [facility] Aspirin (Aspirin Ec Tab*) 81 mg PO DAILY [facility] Atorvastatin Calcium (Lipitor*) 40 mg PO 1700 [facility] Docusate Sodium (Colace Cap*) 200 mg PO BID [facility] Heparin Sodium (Porcine) (Heparin Vial(*)) 5,000 units SUBCUT Q8HR [facility] Hydrochlorothiazide (Hydrodiuril Tab*) 25 mg PO QAM [facility] Sodium Chloride (Ns 0.9% 1000 Ml*) 1,000 mls @ 50 mls/hr IV PER RATE [facility] Ceftriaxone Sodium 1,000 mg/ (Sodium Chloride) 50 mls @ 200 mls/hr IVPB Q24H [facility] Azithromycin 500 mg/ Sodium (Chloride) 250 mls @ 250 mls/hr IVPB Q24H [facility] Insulin Human Lispro (Humalog*) 0 units SUBCUT ACHS [facility]; Protocol Lisinopril (Prinivil Tab*) 10 mg PO DAILY [facility] Melatonin (Melatonin) 3 mg PO BEDTIME PRN; Protocol Metoprolol Tartrate (Lopressor Tab*) 12.5 mg PO BID [facility] Nicotine (Nicotine Inhaler*) 10 mg INH Q2H PRN Nitroglycerin (Nitroglycerin 2% Oint*) 1 inch TOPICAL 0500,2300 [facility] Omeprazole (Prilosec Cap*) 20 mg PO DAILY@0600 [facility] Ondansetron HCl (Zofran Odt Tab*) 4 mg PO Q6H PRN Pharmacy Profile Note (Nitro Patch/Oint Remove*) 1 note TOPICAL 1100 [facility] Vital Signs: Temp Pulse Resp BP Pulse Ox 98.1 F 54 18 128/51 99 07/04/18 12:14 07/04/18 12:14 07/04/18 12:14 07/04/18 12:14 07/04/18 12:14 Oxygen Devices in Use Now: None Appearance: Female sitting up in bed in NAD Eyes: No Scleral Icterus Ears/Nose/Mouth/Throat: Mucous Membranes Moist Neck: Trachea Midline Respiratory: Symmetrical Chest Expansion and Respiratory Effort, Clear to Auscultation Cardiovascular: NL Sounds; No Murmurs; No JVD, No Edema Abdominal: NL Sounds; No Tenderness; No Distention Extremities: No Edema Skin: No Rash or Ulcers Neurological: Alert and Oriented x 3, NL Muscle Strength and Tone Nutrition: Taking PO's Result Diagrams: 07/04/18 05:30 07/04/18 05:30 Assess/Plan/Problems-Billing Assessment: Ms. Vianca Connors is a 52 yo female with a PMH of smoking and hypertension who was admitted from 07/01- 07/02/18 for chest pain with finding of moderate sized reversible ischemic defect on nuc med stress test who left AMA, and returns 07/03 to the hospital with chest pain with plan for cardiac cath. - Patient Problems (1) Chest pain Comment: - Positive nuc med stress test. - Continue metoprolol, aspirin. - Plan for cardiac cath. (2) Pneumonia Comment: - Concern for possible hilar infiltrate in right lung vs pulmonary edema. - Patient reports cough, denies fever, no leukocytosis. - Plan to check CRP and procalcitonin. - Continue ceftraixone and azithromyin for now. - If pneumonia, appears to be mild CAP. Would not delay cath, but will defer to cardiology. (3) Hypertension Comment: - BP well controlled, though HR in 50s. - Continue amlodipine and hctz. Continue decreased dose metoprolol (started on admission), monitor. (4) Diabetes mellitus, type II Comment: - BGs 140-200s. - Hold metformin - Continue lispro SSI coverage for meals. (5) DVT prophylaxis Comment: - Heparin SQ. (6) Full code status Comment: Status and Disposition: Inpatient, anticipate discharge to home when medically stable.
--- NOTE | 2018-07-04 15:02 | ECHO ---
Patient: LASHAY DUNBAR [facility] Rec#: [id number] : 1965 Date: 07/04/2018 Age: 52y Height: 165 cm / 65.0 in Weight: 86 kg / 189.5 lbs Sex: F BSA: 1.93 Room#: 440 Admit Date#: 07/04/2018 Type: Inpatient Referring: Evaristo Quintana MD Reading: Yahir Rodriguez MD Purse Framer: Sofia Ruggiero RDCS,RDMS CC: Addi Barrios MD Transthoracic Echocardiogram Indication: Murmur BP: 113/48 HR: 52 Rhythm: NSR Findings History: Smoker, HTN, DM, abnormal stress test Technical Comments: The study quality is fair. Left Ventricle: The left ventricular chamber size is normal. Moderate concentric left ventricular hypertrophy is observed. The estimated ejection fraction is 60-65%. Abnormal left ventricular diastolic function is observed. Abnormal left ventricular diastolic filling is observed, consistent with impaired relaxation. Left Atrium: The left atrium is mild to moderately dilated. Right Ventricle: The right ventricle is slightly dilated. The right ventricular global systolic function is low normal. Right Atrium: The right atrium is slightly dilated. Aortic Valve: The aortic valve leaflets are moderately thickened.possible bicuspid valve with a raphe vs trileaflet. There is a trace of aortic regurgitation. There is mild to moderate aortic stenosis. The mean gradient of the aortic valve is 17 mmHg. The aortic valve area, by peak velocities, is calculated at 1.6 cm2. The highest aortic valve velocity was obtained with the standard probe from the A5C view. Mitral Valve: The mitral valve leaflets are mildly thickened. There is mild mitral regurgitation. There is no evidence of mitral stenosis. Tricuspid Valve: The tricuspid valve leaflets are normal. There is trace tricuspid regurgitation. Unable to estimate the right ventricular systolic pressure. Pulmonic Valve: There is no evidence of pulmonic valve thickening. There is no evidence of pulmonic regurgitation. Pericardium: There is no significant pericardial effusion. Aorta: The aortic root appears normal. The aortic arch is not well visualized. Pulmonary Artery: The main pulmonary artery is not well visualized. Venous: The inferior vena cava is dilated. There is a greater than 50% respiratory change in the inferior vena cava dimension. Summary: There was not any prior study for comparison. Conclusions The aortic valve leaflets are moderately thickened.possible bicuspid valve with a raphe vs trileaflet. There is a trace of aortic regurgitation. There is mild to moderate aortic stenosis. Moderate concentric left ventricular hypertrophy is observed. The estimated ejection fraction is 60-65%. Abnormal left ventricular diastolic filling is observed, consistent with impaired relaxation. The left atrium is mild to moderately dilated. The right ventricle is slightly dilated. The right ventricular global systolic function is low normal. The right atrium is slightly dilated. There is mild mitral regurgitation. Unable to estimate the right ventricular systolic pressure. Measurements Name Value Normal Range RVIDd (AP) 2D 3 cm (0.9 - 2.6) RVDdMajor (2D) 4 cm (2.2 - 4.4) RAd ISD 4CH 5.1 cm (3.4 - 4.9) RA (A4C)W 4.4 cm (2.9 - 4.6) IVSd (2D) 1.3 cm (0.6 - 1) LVPWd (2D) 1.4 cm (0.6 - 1) LVIDd (2D) 5.2 cm (3.6 - 5.4) LVIDs (2D) 3.3 cm - LV FS (2D) 37 % (25 - 45) Aortic Annulus 2 cm (1.4 - 2.6) Ao root diameter (2D) 2.9 cm (2.1 - 3.5) Ascending Ao 2.9 cm (2.1 - 3.4) LA dimension (AP) 2D 3.2 cm (2.3 - 3.8) LAd ISD 4CH 6.4 cm (2.9 - 5.3) LA ISD 4CH W 5.1 cm (2.5 - 4.5) Name Value Normal Range LA ESV BP (A/L) index 40 ml/m2 - Name Value Normal Range MV E-wave Vmax 1 m/sec - MV deceleration time 208 msec - MV A-wave Vmax 0.7 m/sec - MV E:A ratio 1.3 ratio - P. vein S-wave Vmax 0.6 m/sec - P. vein D-wave Vmax 0.6 m/sec - P. vein S:D Vmax ratio 1 ratio - P. vein A-wave duration 127 msec - LV septal e' Vmax 0.06 m/sec - LV lateral e' Vmax 0.09 m/sec - LV E:e' septal ratio 17 ratio - LV E:e' lateral ratio 11 ratio - Name Value Normal Range AV Vmax 2.8 m/sec - AV VTI 68 cm - AV peak gradient 31 mmHg - AV mean gradient 17 mmHg - LVOT diameter 2 cm - LVOT Vmax 1.4 m/sec - LVOT VTI 29 cm - LVOT peak gradient 8 mmHg - LVOT mean gradient 4 mmHg - DOI (VTI) 0.4 ratio - ROSA MARIA (continuity Vmax) 1.6 cm2 - ROSA MARIA (continuity VTI) 1.3 cm2 - CORNELL Vmax 0.7 m/sec - Name Value Normal Range RAP 8 mmHg - IVC diameter 2.4 cm - Name Value Normal Range PV Vmax 1 m/sec - PV peak gradient 4 mmHg -
[2018-07-04] MEDS: amLODIPine TAB* 5 MG PO SCH (16:56)
[2018-07-05] MEDS: Nitroglycerin 2% OINT* 1 GM PAK TOPICAL SCH ×3 (00:09→23:16)
[2018-07-05] MEDS: cefTRIAXone VIAL(*) 1,000 MG in NS 0.9% 50 ML* 50 ML IVPB SCH (00:28)
[2018-07-05] MEDS: Azithromycin IV(*) 500 MG in NS 0.9% 250 ML* 250 ML IVPB SCH (01:11)
[2018-07-05] MEDS: Heparin VIAL(*) 5000 UNITS/ML VIAL (FIVE THOUSAND) SUBCUT SCH ×3 (06:02→20:13)
[2018-07-05] MEDS: Omeprazole CAP* 20 MG PO SCH (06:03)
[2018-07-05] MEDS: Acetaminophen TAB* 325 MG PO PRN ×2 (06:23→18:00)
[2018-07-05] MEDS: Insulin LISPRO* 1 UNITS UNIT SUBCUT SCH ×4 (08:18→21:35)
[2018-07-05] MEDS: Aspirin EC TAB* 81 MG TAB.EC PO SCH ×2 (08:20→13:47)
[2018-07-05] MEDS: Metoprolol Tartrate TAB* 25 MG PO SCH ×3 (08:20→20:12)
[2018-07-05] MEDS: Hydrochlorothiazide TAB* 25 MG PO SCH ×2 (08:20→13:47)
[2018-07-05] MEDS: Docusate CAP* 100 MG PO SCH ×2 (08:20→20:12)
[2018-07-05] MEDS: Lisinopril TAB* 10 MG PO SCH ×2 (08:20→13:48)
--- NOTE | 2018-07-05 08:33 | PN ---
Subjective Date of Service: 07/05/18 Interval History: Ms. Vianca Connors reports feeling quite well. She denies any complaint including chest pain, SOB, nausea, or abdominal pain. Objective Active Medications: Acetaminophen (Tylenol Tab*) 650 mg PO Q6H PRN Amlodipine Besylate (Norvasc Tab*) 5 mg PO QPM [facility] Aspirin (Aspirin Ec Tab*) 81 mg PO DAILY [facility] Atorvastatin Calcium (Lipitor*) 40 mg PO 1700 [facility] Docusate Sodium (Colace Cap*) 200 mg PO BID [facility] Heparin Sodium (Porcine) (Heparin Vial(*)) 5,000 units SUBCUT Q8HR [facility] Hydrochlorothiazide (Hydrodiuril Tab*) 25 mg PO QAM [facility] Sodium Chloride (Ns 0.9% 1000 Ml*) 1,000 mls @ 50 mls/hr IV PER RATE [facility] Ceftriaxone Sodium 1,000 mg/ (Sodium Chloride) 50 mls @ 200 mls/hr IVPB Q24H [facility] Azithromycin 500 mg/ Sodium (Chloride) 250 mls @ 250 mls/hr IVPB Q24H [facility] Insulin Human Lispro (Humalog*) 0 units SUBCUT ACHS [facility]; Protocol Lisinopril (Prinivil Tab*) 10 mg PO DAILY [facility] Melatonin (Melatonin) 3 mg PO BEDTIME PRN; Protocol Metoprolol Tartrate (Lopressor Tab*) 12.5 mg PO BID [facility] Nicotine (Nicotine Inhaler*) 10 mg INH Q2H PRN Nitroglycerin (Nitroglycerin 2% Oint*) 1 inch TOPICAL 0500,2300 [facility] Omeprazole (Prilosec Cap*) 20 mg PO DAILY@0600 [facility] Ondansetron HCl (Zofran Odt Tab*) 4 mg PO Q6H PRN Pharmacy Profile Note (Nitro Patch/Oint Remove*) 1 note TOPICAL 1100 [facility] Vital Signs: Temp Pulse Resp BP Pulse Ox 97.9 F 48 20 143/65 96 07/05/18 03:49 07/05/18 03:49 07/05/18 03:49 07/05/18 03:49 07/05/18 03:49 Oxygen Devices in Use Now: None Appearance: Female sitting up in bed in NAD Eyes: No Scleral Icterus Ears/Nose/Mouth/Throat: Mucous Membranes Moist Neck: Trachea Midline Respiratory: Symmetrical Chest Expansion and Respiratory Effort, Clear to Auscultation Cardiovascular: NL Sounds; No Murmurs; No JVD Abdominal: No Hepatosplenomegaly Extremities: No Edema Skin: No Rash or Ulcers Neurological: Alert and Oriented x 3, NL Muscle Strength and Tone Result Diagrams: 07/04/18 05:30 07/04/18 05:30 Microbiology and Other Data: Microbiology 07/04/18 00:17 Aerobic Blood Culture - Preliminary Blood Venous No Growth Day 1 Anaerobic Blood Culture - Preliminary No Growth Day 1 Assess/Plan/Problems-Billing Assessment: Ms. Vianca Connors is a 52 yo female with a PMH of smoking and hypertension who was admitted from 07/01- 07/02/18 for chest pain with finding of moderate sized reversible ischemic defect on nuc med stress test who left AMA, and returns 07/03 to the hospital with chest pain with plan for cardiac cath. - Patient Problems (1) Chest pain Comment: - Positive nuc med stress test. - Plan for cardiac cath, results pending but no stent placed, plan for medical managment. - Continue metoprolol, lisinopril, aspirin, statin. (2) Pneumonia Comment: - Concern for possible hilar infiltrate in right lung vs pulmonary edema. - Patient reports cough, denies fever, no leukocytosis. - CRP 100 and procalcitonin < 0.01. - Continue ceftraixone and azithromyin. (3) Hypertension Comment: - SBP generally well controlled, though HR in 50s. - Continue amlodipine and hctz. Metoprolol, lisinopril started. (4) Diabetes mellitus, type II Comment: - BGs 140-200s. - Hold metformin - Continue lispro SSI coverage for meals. (5) DVT prophylaxis Comment: - Heparin SQ. (6) Full code status Comment: Status and Disposition: Inpatient, anticipate discharge to home when medically stable.
[2018-07-05] MEDS ORDERED: Aspirin EC TAB* 81 MG TAB.EC PO SCH (09:00)
[2018-07-05] MEDS: Nitro Patch/OINT Remove TOPICAL SCH (11:35)
[2018-07-05] MEDS ORDERED: VERAPAMIL 2.5 MG/ML 2 ML VIAL ** 5 mg/2 ml ONE (14:02)
[2018-07-05] MEDS ORDERED: Midazolam* 1 MG/ML 10 ML VIAL (10 MG) ONE (14:02)
[2018-07-05] MEDS ORDERED: Heparin(*) 1000 UNIT/ML 10 ML VIAL CATH LAB IV ONE (14:02)
[2018-07-05] MEDS ORDERED: fentaNYL* 50 MCG/ML 2 ML VIAL (100 MCG VIAL) ONE (14:02)
[2018-07-05] MEDS ORDERED: Iohexol 350 (CONTRAST) 200 ML MDV IV ONE (14:03)
[2018-07-05] MEDS ORDERED: Heparin 2 UNITS/ML IVPREMIX* 2,000 ML IV ONE (14:03)
[2018-07-05] MEDS ORDERED: Lidocaine 1% INJ* 10 MG/ML 30 ML SDV ONE (14:03)
[2018-07-05] MEDS ORDERED: nitroGLYCERIN DRIP* 25,000 MCG/250 ML BTL ONE (14:03)
[2018-07-05] MEDS: amLODIPine TAB* 5 MG PO SCH (17:06)
[2018-07-05] MEDS: Atorvastatin* 40 MG TAB PO SCH (17:06)
[2018-07-06] MEDS: cefTRIAXone VIAL(*) 1,000 MG in NS 0.9% 50 ML* 50 ML IVPB SCH (01:07)
[2018-07-06] MEDS: Azithromycin IV(*) 500 MG in NS 0.9% 250 ML* 250 ML IVPB SCH (01:32)
--- NOTE | 2018-07-06 04:54 | CATH ---
CC: Dr. Rodriguez * CARDIAC CATHETERIZATION: DATE OF PROCEDURE: 07/05/18 - ROOM #440 PROCEDURE: Cardiac catheterization including coronary angiography. INDICATION FOR STUDY: Abnormal stress test, crescendo angina. The patient is a 52-year-old female with a history of hypertension and smoking who was admitted to the hospital last week with chest pain. Her stress test was concerning for a significant area of ischemia to her inferior wall. Her echocardiogram showed normal LV size and systolic function with mild to moderate aortic stenosis. Cardiac catheterization was recommended at that point. The patient went home because of family commitments. She came back to the hospital this weekend with continued chest pain. Cardiac catheterization was recommended. PROCEDURE IN DETAIL: The patient was brought to the procedure room in a fasting state. Informed consent had been obtained prior to the procedure. All labs had been reviewed. The patient was placed supine on the procedure table. Her right radial wrist area was prepped and draped in the usual fashion. 1% lidocaine was used for local anesthesia. Her radial artery was entered by a Seldinger technique and a guidewire was placed. Over the guidewire, a 6-Northern Irish sheath introducer was placed. Through the introducer, a cocktail of heparin, nitroglycerin, and verapamil was infused. The patient underwent coronary angiography using a 6-Northern Irish TIG catheter, a 6-Northern Irish JL3.5 catheter and a 5- Northern Irish AR1 catheter. At the end of the procedure, all the sheaths and catheters were removed. The patient tolerated the procedure well with no complications. A total of 90 cc of Omnipaque dye was used. A total of 9.1 minutes of fluoro time was used. FINDINGS: HEMODYNAMICS: Central aortic blood pressure 135/64 with a mean of 89. CORONARY ARTERIES: 1. Left main: The left main was short. It bifurcated into the LAD and circumflex. There was no evidence of stenosis. 2. Left anterior descending artery: The LAD was normal in size. It gave off 2 diagonal vessels. The LAD itself was without significant disease. The second diagonal had an ostial 50% stenosis. 3. Left circumflex artery: The left circumflex artery was normal in size. It gave off 2 obtuse marginal branches. There was no significant stenoses. 4. Right coronary artery: The RCA was the large dominant vessel. It gave off PDA. The right coronary artery was occluded after the first RV marginal branch. There was extensive collaterals to the PDA and posterolateral branches from the LAD. IMPRESSION: 1. Occluded right coronary artery. 2. Extensive collaterals to the PDA and posterolateral branch from the LAD. 3. Successful radial cardiac catheterization. RECOMMENDATION: The patient will continue on maximum medical therapy. If the patient continues to have symptoms, the patient could be considered for CENTRIFUGAL CHILLER TECHNICIAN procedure of the right coronary artery. [id number]/[facility] #: [id number] MTDD
[2018-07-06] MEDS: Nitroglycerin 2% OINT* 1 GM PAK TOPICAL SCH (05:37)
[2018-07-06] MEDS: Heparin VIAL(*) 5000 UNITS/ML VIAL (FIVE THOUSAND) SUBCUT SCH ×2 (05:42→13:50)
[2018-07-06] MEDS: Omeprazole CAP* 20 MG PO SCH (05:43)
[2018-07-06] MEDS: Hydrochlorothiazide TAB* 25 MG PO SCH (08:25)
[2018-07-06] MEDS: Lisinopril TAB* 10 MG PO SCH (08:26)
[2018-07-06] MEDS: Insulin LISPRO* 1 UNITS UNIT SUBCUT SCH ×2 (08:26→11:55)
[2018-07-06] MEDS: Aspirin EC TAB* 81 MG TAB.EC PO SCH (08:26)
[2018-07-06] MEDS: Docusate CAP* 100 MG PO SCH (08:28)
[2018-07-06] MEDS: Metoprolol Tartrate TAB* 25 MG PO SCH (08:34)
[2018-07-06] MEDS: Nitro Patch/OINT Remove TOPICAL SCH (11:56)
[2018-07-06 11:58] VITALS: BP 146/57
--- NOTE | 2018-07-06 21:58 | PN ---
Subjective Date of Service: 07/06/18 Interval History: No complaints, states slept well last night. Staff reports bradycardia today- HR 45 - held metoprolol. Denies chest pain or shortness of breath. Denies abd pain n/v/d. Family History: Unchanged from Admission Social History: Unchanged from Admission Past Medical History: Unchanged from Admission Objective Oxygen Devices in Use Now: None Appearance: appears comfortabel sitting in the chair Eyes: No Scleral Icterus Ears/Nose/Mouth/Throat: Clear Oropharnyx, Mucous Membranes Moist Neck: NL Appearance and Movements; NL JVP, Trachea Midline Respiratory: Symmetrical Chest Expansion and Respiratory Effort, Clear to Auscultation Cardiovascular: NL Sounds; No Murmurs; No JVD, No Edema Abdominal: NL Sounds; No Tenderness; No Distention Extremities: No Edema, No Clubbing, Cyanosis Skin: No Rash or Ulcers Neurological: Alert and Oriented x 3 Nutrition: Taking PO's Result Diagrams: 07/04/18 05:30 07/04/18 05:30 Microbiology and Other Data: Microbiology 07/04/18 00:17 Aerobic Blood Culture - Preliminary Blood Venous No Growth Day 1 Anaerobic Blood Culture - Preliminary No Growth Day 1 Assess/Plan/Problems-Billing Assessment: Ms. Vianca Connors is a 52 yo female with a PMH of smoking and hypertension who was admitted from 07/01- 07/02/18 for chest pain with finding of moderate sized reversible ischemic defect on nuc med stress test who left AMA, and returns 07/03 to the hospital with chest pain with plan for cardiac cath. - Patient Problems (1) Chest pain Status: Acute Code(s): R07.9 - CHEST PAIN, UNSPECIFIED SNOMED Code(s): 77058480 Comment: - Positive nuc med stress test. - Plan for cardiac cath, results no stent placed- total occulsion of RCA with good colateral circulation , plan for medical managment. - Continue lisinopril, aspirin, statin. - Spoke to Dr. Perez - will stop metoprolol and start imdur - HR in the 40's - Patient will need to follow up with Dr. Perez in 1 week and Follow up with Dr. Rodriguez in 2 weeks - Follow up with PMD in 4 to7 days - no lifting with right arm- watch cath site for infection stop smoking (2) DVT prophylaxis Status: Acute Code(s): UOW5680 - SNOMED Code(s): 918849665 Comment: - Heparin SQ. (3) Diabetes mellitus, type II Status: Acute Comment: - BGs 150-230. - will resume metformin at discharge (4) Hypertension Status: Acute Code(s): I10 - ESSENTIAL (PRIMARY) HYPERTENSION SNOMED Code(s) : 28801165 Comment: - SBP generally well controlled, though HR in 50s. - Continue amlodipine and hctz, lisinopril - Will stop metoprolol - HR in the 40's- per cardiology recommendations - will start Imdur as per Dr. Perez's recommendations (5) Pneumonia Status: Acute Code(s): J18.9 - PNEUMONIA, UNSPECIFIED ORGANISM SNOMED Code(s ): 941015988 Comment: - Concern for possible hilar infiltrate in right lung vs pulmonary edema. - Patient reports cough, denies fever, no leukocytosis. - CRP 100 and procalcitonin < 0.01. - Continue Azithromycin for 3 more doses - will start PO vantin 200 mg BID for 5 days (6) Full code status Status: Acute Code(s): Z78.9 - OTHER SPECIFIED HEALTH STATUS SNOMED Code(s) : 655411048 Comment: Status and Disposition: discharge home .
--- NOTE | 2018-07-09 11:18 | DS ---
CC: Dr. Barrios * DISCHARGE SUMMARY: DATE OF ADMISSION: 07/04/18 DATE OF DISCHARGE: 07/06/18 PROVIDER: Shannon Lyman NP ATTENDING PHYSICIAN: Dr. Sarah Dang * (dictated by Shannon Lyman NP) PRIMARY CARE PROVIDER: Addi Barrios MD PRIMARY DIAGNOSES: 1. Chest pain. 2. Right upper lobe pneumonia. 3. Cardiac catheterization with right coronary artery occlusion, medical management recommended. SECONDARY DIAGNOSES: 1. Hypertension. 2. Diabetes. STUDIES COMPLETED WHILE IN THE HOSPITAL: 1. She had a chest x-ray on 07/03/18. Radiologist's Impression: Density around the right upper lobe lateral margin, which could represent pneumonia, pulmonary vasculature appeared mildly engorged. There is fairly symmetric fullness in the bilateral gloria and appearance that could be due to mild pulmonary vascular congestion. She had a transthoracic echocardiogram on . Conclusion: Aortic valve leaflets are mildly thickened, possible bicuspid valve with a raphe versus trileaflet. There is a trace of aortic regurgitation. There is mild-to- moderate aortic stenosis, moderate concentric left ventricular hypertrophy was observed, the estimated ejection fraction is 60 % to 65%, abnormal left ventricular diastolic filling consistent with impaired relaxation, left atrium is mild-to- moderately dilated, the right ventricle is slightly dilated. The right ventricle global systolic function is low normal, but right atrium is slightly dilated. There is mild mitral regurgitation and unable to estimate the right ventricular systolic pressure. She had a cardiac cauterization on 07/05/18, the left main was short, it bifurcates into the LAD and circumflex. There was no evidence of stenosis. The left anterior descending artery. The LAD is normal size, gave 2 diagonal vessels. The LAD itself was without significant disease, the second diagonal and it is 50 % stenosis. 2. The left circumflex artery: The left circumflex artery is normal size. It gave off 2 obtuse marginal branches. There was no significant stenosis. 3. The right coronary artery: The RAC was large dominant vessel. It gave off PDA. The right coronary artery was occluded after the first RV marginal branch. There were extensive collaterals to the PDA and posterolateral branches of the LAD. Impression: Occluded right coronary artery, extensive collateral to the PDA and posterior lateral branches of the LAD. Successful right radial cardiac catheterization. It was recommended to continue maximum medical management. Should the patient continue to have symptoms, the patient could be considered for MATTRESS INSPECTOR procedure of the right coronary artery. DISCHARGE MEDICATIONS: New home medications: 1. Azithromycin 250 mg p.o. daily x3 days. 2. Vantin 200 mg p.o. b.i.d. for 7 days. 3. Isosorbide mononitrate 30 mg p.o. daily. Continued home medications: 1. Metformin 1000 mg p.o. b.i.d. 2. Norvasc 5 mg p.o. daily. 3. Lisinopril 40 mg p.o. daily. 4. Hydrochlorothiazide 25 mg p.o. daily. 5. Aspirin 81 mg p.o. daily. 6. Atorvastatin 40 mg p.o. daily. HISTORY OF PRESENT ILLNESS AND HOSPITAL COURSE: Ms. Vianca Connors is a 52-year-old female with past medical history significant for hypertension and diabetes, who is admitted for observation to [facility] from 07/01/18 to 07/02/18 for chest pain, was found to have high risk nuclear stress with moderate sized reversible change in the anterior and inferior frazier, EF of 59% with no focal wall motion abnormality. She was offered a cardiac catheterization for further evaluation and management, however, she refused and signed out AMA. On the night of admission, she reports approximately 1400, developed some nonexertional , nonradiating substernal chest pain associated with shortness of breath, nausea without vomiting, sweating or palpitations, which improved with sublingual nitro and resolved with an additional nitro paste in the emergency room. After several hours of discomfort, she had her drive her back to the emergency room where she was found to have a new right upper lobe infiltrate and was identified along with a benign EKG and normal troponins. White in the emergency room, she had routine lab work. Her troponins were negative. She was admitted for right upper lobe pneumonia and chest pain. She was seen in consultation by Cardiology and a cardiac catheterization was performed. She was found to have a totally occluded right coronary artery with good collateral circulation to the PDA and it was recommended that the patient be medically managed. The patient had no further chest pain throughout her admission. She did have some bradycardia during the admission with a heart rate of 45. Her metoprolol was held and then subsequently discontinued as per the recommendation of Cardiology. On the day of discharge, the patient is stable for discharge home. Vital signs are as follows: Temperature 98.0, heart rate was 49, respirations 16, O2 saturation 97%, blood pressure 146/57. DISCHARGE PLAN: At this time, Ms. Vianca Connors is stable for discharge home. Activity as tolerated. 1. Chest pain. The patient had a cardiac catheterization during this hospitalization. She was found to have a right total coronary artery occlusion with collateral circulation and Cardiology has recommended medical management. She will continue on lisinopril, aspirin, and a statin. Her metoprolol will be stopped. She will be started on Imdur as her heart rate was in the 40s. The patient is to follow up with Dr. Perez in 1 week and to follow up with Dr. Rodriguez in 2 weeks. She should follow up with her primary care provider as well in 4 to 7 days. There is no lifting with the right arm and she needs to watch the cardiac catheterization site for signs of infection, increased redness, swelling, or any drainage. She was also instructed to stop smoking. 2. Pneumonia. She has a right upper lobe pneumonia. She will be continued on azithromycin for 3 more days and she will be placed on Vantin 200 mg p.o. b.i.d. for 5 days. The patient was afebrile and had no leukocytosis on the day of discharge. 3. Hypertension. She should continue on her lisinopril, amlodipine, and hydrochlorothiazide. I will start her on Imdur as per Dr. Perez's recommendation for her chest pain. She should change position slowly. 4. Diabetes. She should resume her metformin at discharge. DIET: She should continue on a heart healthy low-sodium diet. FOLLOWUP: She should follow up with her primary care provider in 4 to 7 days. She should follow up with Dr. Perez in 1 week. She needs to follow up with Dr. Rodriguez in 2 weeks. The patient is to return to the emergency room for any chest pain or shortness of breath associated with nausea and diaphoresis or any other concerning symptoms. This is a summarization of her hospitalization. For further details, please obtain the entire medical record. TIME SPENT: Time spent on this discharge was approximately 60 minutes, greater than half that time was spent with the patient discussing discharge plans and instructions. CONDITION ON DISCHARGE: Stable. I have discussed with my attending Dr. Sarah Dang and she is in agreement with my plan. SHANNON LYMAN, CAGE MANAGER [id number]/[facility] #: [id number] [facility] HOSPITALPriyank
== END 2018-07-06 15:10 | disposition home or self-care (01) ==
LOC: ED 22:53 → MEDTELE 07-04 00:38
PROVIDERS: ADMIT Hospitalist; ATTEND Internal Medicine
DX: R07.9 Chest pain, unspecified (principal); R06.02 Shortness of breath; I10 Essential (primary) hypertension; E11.9 Type 2 diabetes mellitus without complications; R05 Cough; Z79.4 Long term (current) use of insulin; E66.01 Morbid (severe) obesity due to excess calories; M54.2 Cervicalgia; F17.210 Nicotine dependence, cigarettes, uncomplicated
CPT/HCPCS: 36415; 71045; 80048; 80053; 83880; 84145; 84484; 85025; 85610; 85730; 86140; 87040; 93005; 93306; 93454; 96365; 96366; 96372; 96375; 99156; 99157; 99284; 99406; A9270-GY; G0378; J0456; J0696; J1644; J2250; J3010

== ENCOUNTER 2021-01-03 10:51 | Inpatient (IN) ==
[2021-01-03] MEDS ORDERED: Dexamethasone IV 4 MG/ML VIAL 1 ml VIAL IV SLOW PU ONE (11:20)
[2021-01-03] MEDS ORDERED: diPHENhydraMINE IV 50 MG/ML 1 ml VIAL (BENADRYL) IV ONE (11:20)
[2021-01-03] MEDS ORDERED: Famotidine IV 10 MG/ML 2 ml VIAL (20 mg) IV SLOW PU ONE (11:20)
[2021-01-03] MEDS ORDERED: NS 0.9% 1000 ml BAG 1,000 ML IV ONE (11:21)
[2021-01-03 11:49] LABS: ABS Basophils 0.1 10^3/ul (0-0.2); ABS Eosinophils 0.3 10^3/ul (0-0.6); ABS Lymphocytes 1.3 10^3/ul (1.0-4.8); ABS Monocytes 0.4 10^3/ul (0-0.8); ABS Neutrophils 4.5 10^3/ul (1.5-7.7); Eosinophil % 4.3 %; Hematocrit 45 % (35-47); Hemoglobin 15.3 g/dL (12.0-16.0); Lymphocyte % 19.8 %; Mean Corpuscular HGB Conc 34 g/dL (31-36); Mean Corpuscular Hemoglobin 30 pg (27-31); Mean Corpuscular Volume 87 fL (80-97); Nucleated Red Blood Cells % 0.1; Platelet Count 217 10^3/uL (150-450); Red Blood Count 5.14 10^6 /uL (3.70-4.87); Red Cell Distribution Width 13 % (10-15); White Blood Count 6.5 10^3/uL (3.5-10.8)
[2021-01-03 11:56] LABS: INR 1.05 (0.82-1.09)
[2021-01-03 12:06] LABS: Albumin 3.4 g/dL (3.2-5.2); BUN/Creatinine Ratio 18.4 (8-20); C Reactive Protein 7.59 mg/L (<8.01); Calcium 8.9 mg/dL (8.6-10.3); EGFR African American 158.7 (>60); EGFR Non-African American 131.1 (>60); Globulin 3.3 g/dL (2-4); Potassium 3.8 mmol/L (3.5-5.0); Total Bilirubin 0.5 mg/dL (0.2-1.0); Total Protein 6.7 g/dL (6.4-8.9)
[2021-01-03] MEDS: Lactated Ringers 1000 ml BAG 1,000 ML IV SCH (18:08)
[2021-01-03] MEDS ORDERED: Enoxaparin 40 MG/0.4 ML SYR SUBCUT SCH (21:00)
[2021-01-03] MEDS ORDERED: Insulin GLARGINE 100 un/ml 10 ml VIAL SUBCUT SCH (21:00)
[2021-01-03] MEDS: Famotidine IV 10 MG/ML 2 ml VIAL (20 mg) IV SLOW PU SCH (21:11)
[2021-01-03 21:45] LABS: Glucose Confirmatory 445 mg/dL (70-100)
[2021-01-04 04:51] LABS: Hematocrit 42 % (35-47); Hemoglobin 14.6 g/dL (12.0-16.0); Mean Corpuscular HGB Conc 35 g/dL (31-36); Mean Corpuscular Hemoglobin 30 pg (27-31); Mean Corpuscular Volume 87 fL (80-97); Mean Platelet Volume 8.4 fL (7.4-10.4); Platelet Count 229 10^3/uL (150-450); Red Cell Distribution Width 13 % (10-15); White Blood Count 11.1 10^3/uL (3.5-10.8)
[2021-01-04 05:05] LABS: BUN/Creatinine Ratio 25.9 (8-20); Calcium 9.3 mg/dL (8.6-10.3); EGFR African American 141.8 (>60); EGFR Non-African American 117.2 (>60); Magnesium 1.8 mg/dL (1.9-2.7); Phosphorus 3.4 mg/dL (2.5-5.0); Potassium 3.9 mmol/L (3.5-5.0)
[2021-01-04] MEDS: Lactated Ringers 1000 ml BAG 1,000 ML IV SCH (06:52)
[2021-01-04] MEDS: Famotidine IV 10 MG/ML 2 ml VIAL (20 mg) IV SLOW PU SCH (07:18)
[2021-01-04] MEDS ORDERED: Magnesium Sulfate 2 gm BAG 2 GM/50 ML BAG IVPB ONE (07:50)
[2021-01-04] MEDS ORDERED: Isosorbide Mononit ER 30mg TAB PO SCH (09:00)
[2021-01-04] MEDS ORDERED: CMCS:Rosuvastatin 10 mg TAB (NF) PO SCH (09:00)
[2021-01-04] MEDS ORDERED: Aspirin EC 81 mg TAB.EC (enteric coated) PO SCH (09:00)
[2021-01-04] MEDS ORDERED: Dextran 70/Hypromellose Tears Eye Drops 15 ml BTL (for Artificials Tears) BOTH EYES PRN (10:00)
[2021-01-04 12:43] VITALS: BP 180/78
== END 2021-01-04 12:00 | disposition home or self-care (01) | DRG 811 ==
LOC: ED 10:51 → ICU 16:49
PROVIDERS: ADMIT Internal Medicine Critical Care Medicine; ATTEND Internal Medicine Critical Care Medicine

== ENCOUNTER 2024-06-13 20:07 | Observation (INO) ==
[2024-06-13 20:52] LABS: ABS Basophils 0.1 10^3/uL (0.0-0.1); ABS Eosinophils 0.3 10^3/uL (0.0-0.5); ABS Lymphocytes 2.1 10^3/uL (1.0-4.8); ABS Monocytes 0.4 10^3/uL (0.0-0.9); Eosinophil % 2.9 %; Hematocrit 41.5 % (35-45); Hemoglobin 13.5 g/dL (11.5-14.3); Lymphocyte % 23.2 %; Mean Corpuscular Hemoglobin 28.6 pg (27-33); Mean Corpuscular Hgb Conc 32.6 g/dL (31-36); Mean Corpuscular Volume 87.7 fL (80-97); Platelet Count 240 10^3/uL (150-450); Red Blood Count 4.73 10^6/uL (3.63-4.92); White Blood Count 8.9 10^3/uL (3.8-11.8)
[2024-06-13 20:53] LABS: INR 1.11 (0.85-1.14)
[2024-06-13 21:09] LABS: Albumin 3.3 g/dL (3.2-5.2); Albumin/Globulin Ratio 1.1 (1-3); Creatinine, Serum 1.03 mg/dL (0.51-0.95); Globulin 3.1 g/dL (2-4); Potassium 3.9 mmol/L (3.5-5.0); Total Bilirubin 0.3 mg/dL (0.2-1.0); Total Protein 6.4 g/dL (6.4-8.9)
[2024-06-13 22:21] LABS: High Sensitivity Troponin 1 Hr 33 pg/mL (<15)
[2024-06-13] MEDS ORDERED: Dextrose 50% Syringe 50 ml 25 GM/50 ML SYRINGE IV PUSH PRN (23:52)
[2024-06-13] MEDS ORDERED: Ondansetron 4 mg VIAL 2 MG/ML 2 ml VIAL IV PRN (23:54)
[2024-06-13] MEDS ORDERED: Senna TAB 8.6 mg TAB PO PRN (23:54)
[2024-06-14 00:08] LABS: Magnesium 1.8 mg/dL (1.9-2.7)
[2024-06-14] MEDS ORDERED: Sulfur Hexaflouride MICROSPHR 25 MG VIAL IV PRN (00:13)
[2024-06-14] MEDS ORDERED: Nicotine GUM 4MG FRUIT FLAVOR PO PRN (00:57)
[2024-06-14] MEDS: Insulin GLARGINE 100 un/ml 10 ml VIAL SUBCUT SCH (01:08)
[2024-06-14] MEDS: Enoxaparin 40 MG/0.4 ML SYR SUBCUT SCH (01:10)
[2024-06-14] MEDS: Furosemide 40 mg/4 ml IV VIAL IV SLOW PU ONE (01:13)
[2024-06-14] MEDS: hydrALAZINE 20 mg/ml 1 ML Vial IV IV SLOW PU ONE ×2 (03:18→04:41)
[2024-06-14 05:46] LABS: High Sensitivity Troponin 3 Hr 31 pg/mL (<15)
[2024-06-14 06:11] LABS: Calcium 9.3 mg/dL (8.6-10.3); Creatinine, Serum 0.85 mg/dL (0.51-0.95); HDL Cholesterol 48.7 mg/dL; Magnesium 1.9 mg/dL (1.9-2.7); Potassium 3.6 mmol/L (3.5-5.0); eGFR CKD-EPI 79.4 (>60)
[2024-06-14] MEDS: Nicotine PATCH 21 MG/24 HR PATCH TRANSDERM SCH (07:30)
[2024-06-14] MEDS: Furosemide 40 mg/4 ml IV VIAL IV SLOW PU SCH (08:48)
[2024-06-14] MEDS ORDERED: Isosorbide Mononit ER 30mg TAB PO SCH (09:00)
[2024-06-14] MEDS: nitroGLYCERIN DRIP 25,000 MCG/250 ML BTL IV SCH (09:07)
[2024-06-14 12:08] LABS: High Sensitivity Troponin 1 Hr 26 pg/mL (<15)
[2024-06-14] MEDS ORDERED: hydrALAZINE 20 mg/ml 1 ML Vial IV ONE (13:06)
[2024-06-14] MEDS: hydrALAZINE 20 mg/ml 1 ML Vial IV IV SLOW PU PRN (13:14)
[2024-06-14 14:42] VITALS: BP 203/75
[2024-06-14] MEDS ORDERED: Aspirin EC 81 mg TAB.EC (enteric coated) PO SCH (21:00)
[2024-06-16 15:12] LABS: IgG Immunoblot Negative (Negative); IgM Immunoblot Negative (Negative)
== END 2024-06-15 07:05 | disposition left against medical advice (07) ==
LOC: ED 20:07 → EDHOLD 20:07
PROVIDERS: ADMIT Internal Medicine; ATTEND Student in an Organized Health Care Education/Training Program

== ENCOUNTER 2024-06-24 03:09 | Inpatient (IN) ==
[2024-06-24] MEDS: nitroGLYCERIN DRIP 25,000 MCG/250 ML BTL IV SCH ×2 (03:39→17:45)
[2024-06-24 03:41] LABS: ABS Eosinophils 0.3 10^3/uL (0.0-0.5); ABS Lymphocytes 2.2 10^3/uL (1.0-4.8); ABS Monocytes 0.5 10^3/uL (0.0-0.9); ABS Neutrophils 5.5 10^3/uL (1.5-7.6); Eosinophil % 3.4 %; Hematocrit 39.5 % (35-45); Lymphocyte % 25.5 %; Mean Corpuscular Hemoglobin 28.5 pg (27-33); Mean Corpuscular Hgb Conc 32.9 g/dL (31-36); Mean Corpuscular Volume 86.6 fL (80-97); Mean Platelet Volume 8.8 fL (7.5-11.2); Platelet Count 228 10^3/uL (150-450); Red Blood Count 4.57 10^6/uL (3.63-4.92); Red Cell Distribution Width 14.6 % (12-17); Venous Bicarbonate HCO3 24.1 mmol/L (24-28); White Blood Count 8.5 10^3/uL (3.8-11.8)
[2024-06-24 04:18] LABS: Albumin 3.5 g/dL (3.2-5.2); Albumin/Globulin Ratio 1.2 (1-3); Calcium 8.8 mg/dL (8.6-10.3); Creatinine, Serum 0.95 mg/dL (0.51-0.95); Potassium 3.6 mmol/L (3.5-5.0); Total Bilirubin 0.3 mg/dL (0.2-1.0); Total Protein 6.5 g/dL (6.4-8.9); eGFR CKD-EPI 69.4 (>60)
[2024-06-24] MEDS ORDERED: Furosemide 40 mg/4 ml IV VIAL ONE (05:07)
[2024-06-24 05:10] LABS: High Sensitivity Troponin 1 Hr 266 pg/mL (<15)
[2024-06-24] MEDS: Furosemide 40 mg/4 ml IV VIAL IV ONE ×2 (05:16→15:23)
[2024-06-24] MEDS ORDERED: Dextrose 50% Syringe 50 ml 25 GM/50 ML SYRINGE IV PUSH PRN (05:50)
[2024-06-24] MEDS ORDERED: Ondansetron 4 mg VIAL 2 MG/ML 2 ml VIAL IV PRN (05:59)
[2024-06-24] MEDS: Heparin 5000 UNITS/ML 1 mL VIAL IV SCH (06:05)
[2024-06-24 06:08] LABS: Activated Partial Thrombo Time 29.1 seconds (26.0-38.0); INR 1.02 (0.85-1.14)
[2024-06-24 06:17] LABS: Magnesium 1.8 mg/dL (1.9-2.7)
[2024-06-24] MEDS: Heparin DRIP 25,000 UNITS BAG 25,000 UNITS/250 ML BAG IV SCH (06:17)
[2024-06-24 06:58] LABS: High Sensitivity Troponin 3 Hr 457 pg/mL (<15)
[2024-06-24] MEDS: Magnesium Sulfate 2 gm BAG 2 GM/50 ML BAG IVPB ONE ×2 (10:10→10:44)
[2024-06-24] MEDS: Furosemide 40 mg/4 ml IV VIAL IV SCH (10:11)
[2024-06-24 12:13] LABS: Activated Partial Thrombo Time 37.1 seconds (26.0-38.0); INR 1.02 (0.85-1.14)
[2024-06-24 12:19] LABS: Calcium 8.4 mg/dL (8.6-10.3); Creatinine, Serum 0.91 mg/dL (0.51-0.95); Magnesium 1.8 mg/dL (1.9-2.7); Potassium 4.1 mmol/L (3.5-5.0); eGFR CKD-EPI 73.1 (>60)
[2024-06-24 14:31] LABS: Calcium 8.4 mg/dL (8.6-10.3); Creatinine, Serum 0.92 mg/dL (0.51-0.95); Potassium 3.9 mmol/L (3.5-5.0); eGFR CKD-EPI 72.2 (>60)
[2024-06-24] MEDS: Sulfur Hexaflouride MICROSPHR 25 MG VIAL IV PRN (15:24)
[2024-06-24] MEDS ORDERED: Midazolam 5 mg/5 ml VIAL 1 mg/ml 5 ml VIAL (5 mg) ONE (16:19)
[2024-06-24] MEDS ORDERED: fentaNYL 250 mcg/5 ml 50 MCG/ML 5 ml VIAL (250 MCG) ONE (16:19)
[2024-06-24] MEDS: Insulin GLARGINE 100 un/ml 10 ml VIAL SUBCUT SCH (21:08)
[2024-06-25 04:37] LABS: ABS Basophils 0.1 10^3/uL (0.0-0.1); ABS Eosinophils 0.3 10^3/uL (0.0-0.5); ABS Lymphocytes 2.7 10^3/uL (1.0-4.8); ABS Monocytes 0.6 10^3/uL (0.0-0.9); ABS Neutrophils 6.9 10^3/uL (1.5-7.6); Eosinophil % 2.7 %; Hemoglobin 12.3 g/dL (11.5-14.3); Lymphocyte % 25.6 %; Mean Corpuscular Hemoglobin 29.5 pg (27-33); Mean Corpuscular Hgb Conc 34.3 g/dL (31-36); Mean Corpuscular Volume 86.1 fL (80-97); Mean Platelet Volume 8.8 fL (7.5-11.2); Platelet Count 226 10^3/uL (150-450); Red Blood Count 4.18 10^6/uL (3.63-4.92); Red Cell Distribution Width 14.8 % (12-17); White Blood Count 10.6 10^3/uL (3.8-11.8)
[2024-06-25 06:15] LABS: Calcium 9.1 mg/dL (8.6-10.3); Creatinine, Serum 1.07 mg/dL (0.51-0.95); Magnesium 2.1 mg/dL (1.9-2.7); Potassium 3.7 mmol/L (3.5-5.0); eGFR CKD-EPI 60.2 (>60)
[2024-06-25] MEDS: Aspirin EC 81 mg TAB.EC (enteric coated) PO SCH (07:49)
[2024-06-25] MEDS: nitroGLYCERIN DRIP 25,000 MCG/250 ML BTL IV SCH (09:05)
[2024-06-25] MEDS: niCARdipine 0.1MG/ML IVPREMIX 20 MG/200 ML BAG IV SCH (13:49)
[2024-06-26 05:59] LABS: ABS Basophils 0.2 10^3/uL (0.0-0.1); ABS Eosinophils 0.3 10^3/uL (0.0-0.5); ABS Lymphocytes 2.2 10^3/uL (1.0-4.8); ABS Monocytes 0.6 10^3/uL (0.0-0.9); ABS Neutrophils 5.4 10^3/uL (1.5-7.6); Eosinophil % 3.4 %; Hematocrit 36.5 % (35-45); Hemoglobin 12.5 g/dL (11.5-14.3); Lymphocyte % 25.3 %; Mean Corpuscular Hemoglobin 29.3 pg (27-33); Mean Corpuscular Hgb Conc 34.2 g/dL (31-36); Mean Corpuscular Volume 85.9 fL (80-97); Mean Platelet Volume 9.2 fL (7.5-11.2); Platelet Count 206 10^3/uL (150-450); Red Blood Count 4.26 10^6/uL (3.63-4.92); Red Cell Distribution Width 14.8 % (12-17); White Blood Count 8.7 10^3/uL (3.8-11.8)
[2024-06-26 06:33] LABS: Potassium 3.6 mmol/L (3.5-5.0)
[2024-06-26 06:34] LABS: Calcium 8.6 mg/dL (8.6-10.3); Creatinine, Serum 0.98 mg/dL (0.51-0.95); Magnesium 1.9 mg/dL (1.9-2.7); eGFR CKD-EPI 66.9 (>60)
[2024-06-26] MEDS: Insulin GLARGINE 100 un/ml 10 ml VIAL SUBCUT SCH (20:56)
[2024-06-27 05:35] LABS: ABS Basophils 0.1 10^3/uL (0.0-0.1); ABS Lymphocytes 0.9 10^3/uL (1.0-4.8); ABS Monocytes 0.1 10^3/uL (0.0-0.9); ABS Neutrophils 10.2 10^3/uL (1.5-7.6); Eosinophil % 0.1 %; Hematocrit 38.5 % (35-45); Hemoglobin 12.8 g/dL (11.5-14.3); Lymphocyte % 7.9 %; Mean Corpuscular Hemoglobin 28.5 pg (27-33); Mean Corpuscular Hgb Conc 33.2 g/dL (31-36); Mean Corpuscular Volume 85.8 fL (80-97); Platelet Count 213 10^3/uL (150-450); Red Blood Count 4.48 10^6/uL (3.63-4.92); Red Cell Distribution Width 14.7 % (12-17); White Blood Count 11.3 10^3/uL (3.8-11.8)
[2024-06-27 07:23] LABS: Calcium 8.6 mg/dL (8.6-10.3); Creatinine, Serum 1.15 mg/dL (0.51-0.95); Magnesium 1.9 mg/dL (1.9-2.7); Potassium 3.9 mmol/L (3.5-5.0); eGFR CKD-EPI 55.2 (>60)
[2024-06-27] MEDS: NS 0.9% 1000 ml BAG 1,000 ML IV SCH ×2 (08:05→16:43)
[2024-06-27] MEDS ORDERED: fentaNYL 100 mcg/2 ml 50 MCG/ML VIAL ONE ×2 (08:26→10:39)
[2024-06-27] MEDS ORDERED: Midazolam 5 mg/5 ml VIAL 1 mg/ml 5 ml VIAL (5 mg) ONE ×2 (08:26→10:39)
[2024-06-27] MEDS: Famotidine IV 10 MG/ML 2 ml VIAL (20 mg) IV SLOW PU ONE (09:23)
[2024-06-27] MEDS ORDERED: Heparin 1,000 UNIT/ML 10 ml (10,000 UNITS) CATHLAB/DIALYSIS ONE (10:39)
[2024-06-27] MEDS ORDERED: VERAPAMIL 2.5 MG/ML 2 ML VIAL ** 5 mg/2 ml ONE (10:39)
[2024-06-27] MEDS ORDERED: Heparin 2 UNITS/ML 1000 mls 2,000 ML IV ONE (10:40)
[2024-06-27] MEDS ORDERED: Lidocaine 1% MPF 5 ML VIAL ONE (10:40)
[2024-06-27] MEDS ORDERED: Iohexol 350 (CONTRAST) 200 ML MDV IV ONE (10:40)
[2024-06-27] MEDS ORDERED: nitroGLYCERIN DRIP 25,000 MCG/250 ML BTL ONE (10:40)
[2024-06-27] MEDS: Midazolam 10 mg/10 ml VIAL 1 mg/ml 10 ml VIAL (10 mg) IV SLOW PU ONE (11:30)
[2024-06-27] MEDS: fentaNYL 100 mcg/2 ml 50 MCG/ML VIAL IV SLOW PU ONE (11:30)
[2024-06-27 18:02] LABS: ABS Monocytes 0.5 10^3/uL (0.0-0.9); ABS Neutrophils 15.2 10^3/uL (1.5-7.6); Hematocrit 37.5 % (35-45); Hemoglobin 12.6 g/dL (11.5-14.3); Lymphocyte % 5.9 %; Mean Corpuscular Hemoglobin 29.2 pg (27-33); Mean Corpuscular Hgb Conc 33.7 g/dL (31-36); Mean Corpuscular Volume 86.6 fL (80-97); Mean Platelet Volume 9.2 fL (7.5-11.2); Platelet Count 236 10^3/uL (150-450); Red Blood Count 4.33 10^6/uL (3.63-4.92); Red Cell Distribution Width 14.8 % (12-17); White Blood Count 16.7 10^3/uL (3.8-11.8)
[2024-06-27 18:11] LABS: INR 1.1 (0.85-1.14)
[2024-06-27 18:52] LABS: Calcium 8.4 mg/dL (8.6-10.3); Creatinine, Serum 1.08 mg/dL (0.51-0.95); Potassium 4.3 mmol/L (3.5-5.0); eGFR CKD-EPI 59.5 (>60)
[2024-06-28] MEDS ORDERED: Dextrose 50% Syringe 50 ml 25 GM/50 ML SYRINGE IV PUSH PRN (00:32)
[2024-06-28 03:57] LABS: Glucose Confirmatory 430 mg/dL (70-100)
[2024-06-28] MEDS: Insulin GLARGINE 100 un/ml 10 ml VIAL SUBCUT ONE (04:42)
[2024-06-28 04:57] LABS: ABS Monocytes 0.5 10^3/uL (0.0-0.9); ABS Neutrophils 16.1 10^3/uL (1.5-7.6); Hematocrit 37.5 % (35-45); Hemoglobin 12.3 g/dL (11.5-14.3); Lymphocyte % 5.6 %; Mean Corpuscular Hemoglobin 28.6 pg (27-33); Mean Corpuscular Hgb Conc 32.8 g/dL (31-36); Mean Corpuscular Volume 87.1 fL (80-97); Mean Platelet Volume 9.3 fL (7.5-11.2); Platelet Count 221 10^3/uL (150-450); Red Cell Distribution Width 15.1 % (12-17); White Blood Count 17.6 10^3/uL (3.8-11.8)
[2024-06-28 05:29] LABS: Calcium 8.4 mg/dL (8.6-10.3); Creatinine, Serum 1.18 mg/dL (0.51-0.95); Potassium 3.9 mmol/L (3.5-5.0); eGFR CKD-EPI 53.5 (>60)
[2024-06-28] MEDS: Famotidine IV 10 MG/ML 2 ml VIAL (20 mg) IV SLOW PU ONE (12:57)
[2024-06-28] MEDS ORDERED: fentaNYL 100 mcg/2 ml 50 MCG/ML VIAL ONE ×2 (13:40→16:40)
[2024-06-28] MEDS ORDERED: Midazolam 2 mg/2 ml VIAL 1 mg/ml 2 ml VIAL (2 mg) ONE (13:40)
[2024-06-28] MEDS ORDERED: Phenylephrine IV 10 MG/ML 1 ml VIAL ONE (13:40)
[2024-06-28] MEDS ORDERED: Heparin 1,000 UNIT/ML 10 ml (10,000 UNITS) CATHLAB/DIALYSIS ONE ×2 (14:23→15:21)
[2024-06-28] MEDS ORDERED: nitroGLYCERIN DRIP 25,000 MCG/250 ML BTL ONE (14:24)
[2024-06-28] MEDS ORDERED: Heparin 2 UNITS/ML 1000 mls 2,000 ML IV ONE (14:24)
[2024-06-28] MEDS ORDERED: Lidocaine 1% MPF 5 ML VIAL ONE (14:24)
[2024-06-28] MEDS ORDERED: Iohexol 350 (CONTRAST) 200 ML MDV IV ONE (14:25)
[2024-06-28] MEDS ORDERED: niCARdipine 0.1MG/ML IVPREMIX 20 MG/200 ML BAG IV ONE (14:26)
[2024-06-28] MEDS ORDERED: Succinylcholine 200 mg VIAL 20 mg/ml 10 ml VIAL (200 mg) ONE (15:08)
[2024-06-28] MEDS ORDERED: Heparin 2 UNITS/ML 1000 mls 1,000 ML IV ONE (15:24)
[2024-06-28] MEDS ORDERED: Atropine 0.1 MG/ML 10 ml SYR (1 mg) ONE (15:38)
[2024-06-28] MEDS ORDERED: Iohexol 350 (CONTRAST) 100 ML PAK IV ONE (15:46)
[2024-06-28] MEDS ORDERED: hydrALAZINE 20 mg/ml 1 ML Vial IV IV SLOW PU PRN (17:06)
[2024-06-28] MEDS: hydrALAZINE 20 mg/ml 1 ML Vial IV IV SLOW PU PRN (18:05)
[2024-06-28] MEDS: Isosorbide Mononit ER 30mg TAB PO SCH (19:15)
[2024-06-28 21:28] LABS: Glucose Confirmatory 427 mg/dL (70-100)
[2024-06-29 05:20] LABS: ABS Basophils 0.1 10^3/uL (0.0-0.1); ABS Lymphocytes 1.1 10^3/uL (1.0-4.8); ABS Monocytes 0.9 10^3/uL (0.0-0.9); Hematocrit 36.3 % (35-45); Hemoglobin 12.1 g/dL (11.5-14.3); Lymphocyte % 7.5 %; Mean Corpuscular Hemoglobin 28.9 pg (27-33); Mean Corpuscular Hgb Conc 33.4 g/dL (31-36); Mean Corpuscular Volume 86.7 fL (80-97); Mean Platelet Volume 9.6 fL (7.5-11.2); Platelet Count 210 10^3/uL (150-450); Red Blood Count 4.19 10^6/uL (3.63-4.92); Red Cell Distribution Width 15.5 % (12-17); White Blood Count 15.1 10^3/uL (3.8-11.8)
[2024-06-29 05:31] LABS: Calcium 8.3 mg/dL (8.6-10.3); Creatinine, Serum 1.39 mg/dL (0.51-0.95); Magnesium 2.2 mg/dL (1.9-2.7); Potassium 4.3 mmol/L (3.5-5.0)
[2024-06-29] MEDS: Furosemide 40 mg/4 ml IV VIAL IV ONE (08:53)
[2024-06-29] MEDS: Isosorbide Mononit ER 30mg TAB PO ONE (12:56)
[2024-06-29] MEDS: Insulin GLARGINE 100 un/ml 10 ml VIAL SUBCUT SCH (20:23)
[2024-06-30 06:55] VITALS: BP 132/82
[2024-06-30 07:12] LABS: ABS Eosinophils 0.2 10^3/uL (0.0-0.5); ABS Lymphocytes 2.7 10^3/uL (1.0-4.8); ABS Monocytes 0.9 10^3/uL (0.0-0.9); ABS Neutrophils 6.4 10^3/uL (1.5-7.6); ABS Nucleated RBC 0.01 10^3/ul; Eosinophil % 1.5 %; Hematocrit 36.5 % (35-45); Hemoglobin 12.3 g/dL (11.5-14.3); Lymphocyte % 26.1 %; Mean Corpuscular Hemoglobin 29.2 pg (27-33); Mean Corpuscular Hgb Conc 33.7 g/dL (31-36); Mean Corpuscular Volume 86.8 fL (80-97); Mean Platelet Volume 9.3 fL (7.5-11.2); Nucleated Red Blood Cells % 0.1 %/100WBC (0.0-0.8); Platelet Count 186 10^3/uL (150-450); Red Blood Count 4.21 10^6/uL (3.63-4.92); White Blood Count 10.2 10^3/uL (3.8-11.8)
[2024-06-30 07:20] LABS: Calcium 7.9 mg/dL (8.6-10.3); Creatinine, Serum 1.01 mg/dL (0.51-0.95); Potassium 3.6 mmol/L (3.5-5.0); eGFR CKD-EPI 64.5 (>60)
[2024-06-30] MEDS: Isosorbide Mononit ER 60mg TAB PO SCH (09:32)
[2024-06-30] MEDS ORDERED: Insulin GLARGINE 100 un/ml 10 ml VIAL SUBCUT SCH (21:00)
== END 2024-06-30 12:30 | disposition home or self-care (01) | DRG 175 ==
LOC: ED 03:09 → EDHOLD 05:44 → ICU 07:54
PROVIDERS: ADMIT Internal Medicine Pulmonary Disease; ATTEND Internal Medicine Pulmonary Disease